=== PATIENT | female | born 1935 | race Caucasian/White ===

== ENCOUNTER 2016-08-12 08:32 | Inpatient (IN) | payer MEDICARE, BC ==
[~2016-08-12] VITALS: Ht 149.9 cm; Wt 77.1 kg
[2016-08-12] VITALS (8 sets, daily range): BP systolic 127–159; BP diastolic 59–68; O2SAT 95
[~2016-08-12 08:32] MED LIST: /CELE20CA PO; ACET30TAB PO; ADV500INH INH; ALLO300T PO; ASPI81TAEC PO; BACITAB3 PO; BREO1INH INH; CALCCHW12 PO; CELE-19 PO; CINN500C9 PO; CLOB-25 TOP; COUM2.5T11 PO; DOXY-278 PO; GABA300C3 PO; GLUC5TAB3 PO; JANUVIA; LEVA250T; LEVA750T PO; LEVO88TA3 PO; LIDO5DIS36 TD; LOSA50TA20 PO; MICR8CAP PO; MILKSUS PO; MIRA3350 PO; MUCI600T34 PO; MULTIVIT PO; NEUR300C; NEUR300C PO; NORV5TAB PO; OMEP20CA3 PO; ONGL1TAB9 PO; PLAV75TA PO; POTA-77 PO; PRED10TA PO; PRED1TAB69 PO; PRIL40CA PO; SENN1TAB2 PO; SENO8.6T10 PO; SMZ-800T PO; SYMB16INH INH; SYNT88TA; TORS20TA2 PO; TYLE325T5 PO; ULTR50TA PO; VALS80CA; VICO5TAB; VITA-121 PO; VITA500T53 PO; VITMTA PO; ZYLO300T4 PO
[2016-08-12 09:19] LABS: MEAN CORPUSCULAR HEMOGLOBIN 29.8 pg (27.0-33.0); MEAN CORPUSCULAR VOLUME 87.7 fl (80.0-96.0); PLATELET COUNT, AUTOMATED 202 k/mm3 (150-450); RED CELL DISTRIBUTION WIDTH 12.9 % (11.5-14.5)
[2016-08-12] MEDS ORDERED: IPRATROPIUM 0.5MG/ALBUTEROL 2.5MG INH SOL UD 3ML (DUONEB)(J7620) As Ordered ONE (09:19)
[2016-08-12] MEDS ORDERED: methylPREDNISolone INJ 125 MG/2 ML VIAL (J2930) As Ordered ONE (09:25)
[2016-08-12] MEDS ORDERED: LevoFLOXacin/DEXTROSE 750 MG/150 ML BAG (J1956) As Ordered ONE (09:53)
[2016-08-12 10:05] LABS: CALCIUM LEVEL 9.7 MG/DL (8.8-10.2); CREATININE FOR GFR 1.01 MG/DL (0.55-1.02); GLOMERULAR FILTRATION RATE 56.3 (>39); POTASSIUM SERUM 3.6 MEQ/L (3.5-5.1)
[2016-08-12 10:20] LABS: BANDS 7 % (< 11)
[2016-08-12] MEDS ORDERED: PLAV75TA PO (10:35)
[2016-08-12] MEDS ORDERED: TYLE325T5 PO (10:35)
[2016-08-12] MEDS ORDERED: ALLO15TA PO (10:35)
[2016-08-12] MEDS ORDERED: ALBU83IN INH (10:36)
[2016-08-12] MEDS ORDERED: POTA8TAB3 PO (10:36)
[2016-08-12] MEDS ORDERED: NS 1,000 ML IV SCH (12:45)
[2016-08-12] MEDS ORDERED: GLUCOSE 4 GM CHEW TABLET PO PRN (12:45)
[2016-08-12] MEDS ORDERED: DEXTROSE 50% 50 ML SYRINGE IV PRN (12:45)
[2016-08-12] MEDS ORDERED: GLUCAGON FOR INJ 1 MG VIAL (J1610) SC PRN (12:45)
[2016-08-12] MEDS ORDERED: ISOVUE-370 76% 100ML VIAL (Q9967) As Ordered ONE (12:49)
[2016-08-12] MEDS ORDERED: ONDANSETRON 4MG/2ML VIAL (J2405) IV PRN (13:00)
--- NOTE | 2016-08-12 14:37 | EDDOCDS ---
Nurse's Notes [facility] Name: Mary Bolanos Age: 80 yrs Sex: Female : 1935 Arrival Date: 08/12/2016 Time: 08:32 Bed 5 Private MD: Ozzy Martínez Diagnosis: Pneumonia, unspecified organism Presentation: 08/12 08:33 Presenting complaint: EMS states: Diagnosed 2 months ago with lung cancer. Call today mcp was for productive cough and shortness of breath. Albuterol neb given by EMS, SL established in left AC #18, FSBS--339. Adult Sepsis Screening: The patient does not have new or worsening altered mentation. Systolic blood pressure is greater than 100. Suicide/Homicide risk assessment- the patient denies having any suicidal and/or homicidal ideations and does not present with any other emotional, behavioral or mental health complaints. Status: Patient is not a child and family services specialist or dependent. Transition of care: patient was not received from another setting of care. 08:33 Acuity: JANETTE Level 3 [facility] 08:33 Method Of Arrival: Ambulance [facility] 13:46 Adult Sepsis Screening: Patient's respiratory rate is less than 22. Patient has a qSOFA js13 score of 0- Negative Sepsis Screen. Triage Assessment: 08:44 General: Appears in no apparent distress, Behavior is cooperative. Pain: Location: mcp chest from coughing Pain currently is 4 out of 10 on a pain scale. Respiratory: Onset: The symptoms/episode began/occurred gradually, Airway is patent Respiratory effort is even, labored, Breath sounds with rhonchi bilaterally. Derm: Skin is pink, warm & dry. Historical: - Allergies: Lipitor (Jaundice); Amoxicillin (Rash); Tussionex Pennkinetic ER (confusion); - Home Meds: 1. allopurinol 300 mg Oral tab 1 tab once daily (Last dose: 08/11/2016) 2. aspirin 81 mg Oral tab 1 tab once daily (Last dose: 08/11/2016) 3. Cinnamon 500 mg oral cap twice a day (Last dose: 08/11/2016) 4. glipizide 5 mg Oral tab 1 tab 2 times per day (Last dose: 08/11/2016) 5. multivitamin Oral tab daily (Last dose: 08/11/2016) 6. Neurontin 300 mg Oral cap twice a day (Last dose: 08/11/2016) 7. Norvasc 5 mg Oral tab 1 tab once daily (Last dose: 08/11/2016) 8. Plavix 75 mg Oral tab 1 tab once daily (Last dose: 08/11/2016) 9. potassium chloride 8 mEq Oral TbER 1 tab 3 times per day (Last dose: 08/11/2016) 10. prednisone 5 mg Oral tab once daily (Last dose: 08/11/2016) 11. Tessalon Perles 100 mg Oral cap 1 cap 3 times per day (Last dose: 08/11/2016) 12. Prilosec 40 mg Oral cpDR 1 cap once daily (Last dose: 08/11/2016) 13. Synthroid 88 mcg Oral tab 1 tab once daily (Last dose: 08/11/2016) 14. torsemide 20 mg oral tab 1 tab once daily (Last dose: 08/11/2016) 15. vitamin b12 500 mcg daily (Last dose: 08/11/2016) 16. Vitamin D3 1,000 unit oral tab daily (Last dose: 08/11/2016) - PMHx: Arthritis; Diabetes - NIDDM: controlled; GERD; Gout; Hypercholesterolemia; Hypertension; Thyroid problem; skin cancer; - PSHx: salivary gland removal; Cholecystectomy; Hernia repair; Laminectomy; Knee Arthroplasty, Right; abdominal obstruction - resect; - Social history: Smoking status: Patient states was never smoker of tobacco. No barriers to communication noted, The patient speaks fluent Turkmen. - Family history: Not pertinent. - : The pt / caregiver states he / she is on anticoagulants: Plavix. Home medication list is obtained from the patient. - Exposure Risk Screening:: None identified. Screenin:15 Screening information is obtained from the patient. Fall risk: At risk due to age. js13 Assistance ADL's: requires no assistance with activities of daily living. Abuse/DV Screen: The patient / caregiver reports he/she is: not in a situation that causes fear, pain or injury. Nutritional screening: No deficits noted. Advance Directives: There is no active DNR order. home support is adequate. Assessment: 09:15 General: Appears in no apparent distress, comfortable, Behavior is appropriate for age, js13 cooperative. Pain: Denies pain. Neurological: Level of Consciousness is awake, alert. Cardiovascular: Rhythm is sinus rhythm Chest pain is denied. Respiratory: Airway is patent Respiratory effort is even, unlabored, Respiratory pattern is regular, symmetrical, Breath sounds with rhonchi. Derm: Skin is pink, warm & dry. 09:15 General: MD aware of patients FSBS.. js13 10:20 General: Appears in no apparent distress, comfortable, Behavior is appropriate for age, js13 cooperative. Pain: Denies pain. Neurological: Level of Consciousness is awake, alert. Cardiovascular: Rhythm is sinus rhythm Chest pain is denied. Respiratory: Airway is patent Respiratory effort is even, unlabored, Respiratory pattern is regular, symmetrical, Breath sounds with rhonchi. Derm: Skin is pink, warm & dry. 11:03 Adult Sepsis Screening: The patient does not have new or worsening altered mentation. js13 Patient's respiratory rate is less than 22. Systolic blood pressure is greater than 100. Patient has a qSOFA score of 0- Negative Sepsis Screen. General: Appears in no apparent distress, comfortable, Behavior is appropriate for age, cooperative. Pain: Denies pain. Neurological: Level of Consciousness is awake, alert. Cardiovascular: Rhythm is sinus rhythm Chest pain is denied. Respiratory: Airway is patent Respiratory effort is even, unlabored, Respiratory pattern is regular, symmetrical. Derm: Skin is pink, warm & dry. 12:05 General: Appears in no apparent distress, comfortable, Behavior is appropriate for age, js13 cooperative. Pain: Denies pain. Neurological: Level of Consciousness is awake, alert. Cardiovascular: Rhythm is sinus rhythm Chest pain is denied. Respiratory: Airway is patent Respiratory effort is even, unlabored, Respiratory pattern is regular, symmetrical, Breath sounds are diminished. Derm: Skin is pink, warm & dry. 13:15 Adult Sepsis Screening: The patient does not have new or worsening altered mentation. js13 Patient's respiratory rate is less than 22. Systolic blood pressure is greater than 100. Patient has a qSOFA score of 0- Negative Sepsis Screen. General: Appears in no apparent distress, Behavior is appropriate for age, cooperative. Pain: Denies pain. Neurological: Level of Consciousness is awake, alert. Cardiovascular: Rhythm is sinus rhythm Chest pain is denied. Respiratory: Airway is patent Respiratory effort is even, Respiratory pattern is regular, Breath sounds are diminished. Derm: Skin is pink, warm & dry. 14:19 General: Appears in no apparent distress, comfortable, Behavior is appropriate for age, js13 cooperative. Pain: Denies pain. Neurological: Level of Consciousness is awake, alert. Cardiovascular: Rhythm is sinus rhythm Chest pain is denied. Respiratory: Airway is patent Respiratory effort is even, unlabored, Respiratory pattern is regular, symmetrical, Breath sounds with rhonchi Breath sounds are diminished. Derm: Skin is pink, warm & dry. Vital Signs: 08:41 BP 187 / 83; Pulse 109; Resp 22; Temp 98.4(TE); Pulse Ox 88% on 2 lpm NC; Weight 74.84 dem1 kg (R); Height 4 ft. 11 in. (149.86 cm) (R); Pain 3; 09:11 BP 163 / 72 (auto/); js13 09:11 Pulse 96 MON; Resp 18; Pulse Ox 90% on 4 lpm NC; js13 09:24 BP 196 / 83 (auto/); js13 09:24 Pulse 112 MON; Resp 20; Pulse Ox 90% on 3 lpm NC; js13 09:39 BP 143 / 75 (auto/); js13 09:39 Pulse 96 MON; Resp 20; Pulse Ox 92% on 3 lpm NC; js13 09:54 BP 157 / 70 (auto/); js13 09:54 Pulse 102 MON; Resp 20; Pulse Ox 88% on 3 lpm NC; js13 10:09 BP 133 / 56 (auto/); js13 10:09 Pulse 100 MON; Resp 20; Pulse Ox 88% on 3 lpm NC; js13 10:24 BP 176 / 74 (auto/); js13 10:24 Pulse 102 MON; Resp 20; Pulse Ox 89% on 3 lpm NC; js13 10:39 BP 174 / 76 (auto/); js13 10:39 Pulse 104 MON; Resp 20; Pulse Ox 89% on 3 lpm NC; js13 10:54 BP 152 / 64 (auto/); js13 10:54 Pulse 102 MON; Resp 18; Pulse Ox 89% on 3 lpm NC; js13 11:09 BP 150 / 68 (auto/); js13 11:09 Pulse 94 MON; Resp 20; Pulse Ox 86% on 3 lpm NC; js13 11:39 BP 144 / 68 (auto/); js13 11:39 Pulse 100 MON; Resp 20; Pulse Ox 89% on 3 lpm NC; js13 11:54 BP 167 / 73 (auto/); js13 11:54 Pulse 90 MON; Resp 20; Pulse Ox 89% on 3 lpm NC; js13 12:09 BP 150 / 63 (auto/); js13 12:09 Pulse 94 MON; Resp 20; Pulse Ox 88% on 3 lpm NC; js13 12:24 BP 157 / 71 (auto/); js13 12:24 Pulse 94 MON; Resp 20; Pulse Ox 87% on 3 lpm NC; js13 12:39 BP 148 / 60 (auto/); js13 12:39 Pulse 90 MON; Resp 20; Pulse Ox 88% on 3 lpm NC; js13 12:54 BP 151 / 67 (auto/); js13 12:54 Pulse 98 MON; Resp 18; Pulse Ox 89% on 3 lpm NC; js13 13:09 BP 152 / 67 (auto/); js13 13:09 Pulse 102 MON; Resp 20; Pulse Ox 91% on 3 lpm NC; js13 13:24 BP 144 / 59 (auto/); js13 13:24 Pulse 98 MON; Resp 20; Pulse Ox 88% on 3 lpm NC; js13 13:39 BP 152 / 70 (auto/); js13 13:39 Pulse 94 MON; Resp 20; Temp 98.5(O); Pulse Ox 89% on 3 lpm NC; js13 13:54 BP 135 / 70 (auto/); js13 13:54 Pulse 92 MON; Resp 18; Pulse Ox 89% on 3 lpm NC; js13 14:09 BP 148 / 70 (auto/); js13 14:09 Pulse 98 MON; Resp 18; Pulse Ox 89% on 3 lpm NC; js13 08:41 Body Mass Index 33.33 (74.84 kg, 149.86 cm) dem1 Vitals: 08:41 Log In Time N/A - ambulance arrival. dem1 ED Course: 08:33 Patient visited by Airam Castañeda, Director Of Parks And Recreation. lbd 08:33 Ozzy Martínez is Private Physician. lbd 08:33 Patient moved to Waiting lbd 08:34 Latha Rothman DO [facility]. bs6 08:34 Estee Hickman MD is Attending Physician. bs6 08:34 Patient visited by Latha Rothman DO. bs6 08:34 Patient visited by Latha Rothman DO. bs6 08:34 Patient moved to 5 lbd 08:36 Triage Initiated mcp 08:38 Dasha Bolanos,RN is Primary Nurse. js13 08:42 Patient visited by Raad Ryan. dem1 08:47 Patient visited by Ana Turk RN. mcp 09:06 Patient visited by Raad Ryan. dem1 09:06 EKG done. (by ED staff). Reviewed by Latha Rothman DO. dem1 09:15 The patient / caregiver is instructed regarding the plan of care and ED course. Placed js13 in gown. Bed in low position. Call light in reach. Side rails up X2. fibre optics jointer on. Pulse ox on. NIBP on. 09:15 Maintain field IV. Dressing intact. Good blood return noted. Site clean & dry. Gauge & js13 site: 18 gauge LAC. No procedures done that require assistance. Labs drawn. (by ED staff). Sent per order to lab. Labs/Blood culture drawn. O2 via nasal cannula \T\ 4L/min. 09:18 Patient visited by Dasha Bolanos RN. js13 09:18 BNP Sent. js13 09:18 Lactic Acid (Ni tube on ice) Sent. js13 09:23 TROPONIN Sent. js13 09:23 CARDIAC INJURY PROFILE Sent. js13 09:23 DIFFERENTIAL NO CHARGE Sent. js13 09:33 -Influenza A&B Rapid Antigen - Nose Sent. srm 09:57 Patient visited by Sonya Ren PCA. ct3 10:13 Patient moved to Ultrasound br3 10:45 Patient moved to 5 br3 10:48 Zuleyka Elena is Hospitalizing Provider. bs6 11:04 Patient visited by Dasha Bolanos RN. js13 11:08 [facility] Payment Agreement was scanned into [employer] and attached to record. pm4 12:08 Patient visited by Dasha Bolanos RN. js13 13:48 LACTIC ACID LEVEL, LACTATE Sent. js13 13:48 CARDIAC MARKER PANEL Sent. js13 Administered Medications: 09:28 Drug: Solu-MEDROL 125 mg [Solu-Medrol 500 mg intravenous solution (125 mg)] Route: IVP; srm Site: left antecubital; 09:30 Drug: Albuterol-Ipratropium 1 neb [ipratropium-albuterol 0.5 mg-3 mg(2.5 mg base)/3 mL kt1 nebulization soln (1 neb)] Route: Nebulizer; 09:45 Drug: Albuterol-Ipratropium 1 neb [ipratropium-albuterol 0.5 mg-3 mg(2.5 mg base)/3 mL kt1 nebulization soln (1 neb)] Route: Nebulizer; 10:02 Drug: Albuterol-Ipratropium 1 neb [ipratropium-albuterol 0.5 mg-3 mg(2.5 mg base)/3 mL kt1 nebulization soln (1 neb)] Route: Nebulizer; 10:03 Drug: levofloxacin 750 mg [levofloxacin 750 mg/150 mL in 5 % dextrose intravenous js13 piggyback] Route: IVPB; Infused Over: 90 mins; Site: left antecubital; 11:26 Follow up: IV Status: Completed infusion jc4 RT: 09:30 Initial Med Neb Given as ordered Patient was instructed and evaluated on procedure. kt1 Respiratory: Breath sounds are diminished bilaterally. 09:45 Subsequent Med Neb Given as ordered Patient tolerated procedure well without adverse kt1 effect. 10:02 Subsequent Med Neb Given as ordered Patient tolerated procedure well without adverse kt1 effect. Order Results: Lab Order: Basic Metabolic Profile; SPEC'M 08/12/16 08:56 Test: GLUCOSE, FASTING; Value: 363; Range: 83-110; Abnormal: Above high normal; Units: MG/DL; Status: F Test: BLOOD UREA NITROGEN; Value: 19; Range: 7-18; Abnormal: Above high normal; Units: MG/DL; Status: F Test: CREATININE FOR GFR; Value: 1.01; Range: 0.55-1.02; Units: MG/DL; Status: F Test: GLOMERULAR FILTRATION RATE; Value: 56.3; Range: >39; Status: F Test: SODIUM LEVEL; Value: 133; Range: 136-145; Abnormal: Below low normal; Units: MEQ/L; Status: F Test: POTASSIUM SERUM; Value: 3.6; Range: 3.5-5.1; Units: MEQ/L; Status: F Test: CHLORIDE LEVEL; Value: 85; Range: 98-107; Abnormal: Below low normal; Units: MEQ/L; Status: F Test: CARBON DIOXIDE LEVEL; Value: 38; Range: 21-32; Abnormal: Above high normal; Units: MEQ/L; Status: F Test: ANION GAP; Value: 10; Range: 8-16; Units: MEQ/L; Status: F Test: CALCIUM LEVEL; Value: 9.7; Range: 8.8-10.2; Units: MG/DL; Status: F Test Note: ; Units are mL/min/1.73 m2 Chronic Kidney Disease Staging per NKF: Stage I & II GFR >=60 Normal to Mildly Decreased Stage III GFR 30-59 Moderately Decreased Stage IV GFR 15-29 Severely Decreased Stage V GFR <15 Very Little GFR Left ESRD GFR <15 on S[employer]IOR [employer] UNDERWRITER Test: C REACTIVE PROTEIN QUANTITATIV; Range: 0.00-0.30; Units: MG/DL; Status: I Lab Order: CBC with Diff; SPEC'M 08/12/16 08:56 Test: WHITE BLOOD COUNT; Value: 13.0; Range: 4.0-10.0; Abnormal: Above high normal; Units: K/mm3; Status: F Test: RED BLOOD COUNT; Value: 4.85; Range: 4.00-5.40; Units: M/mm3; Status: F Test: HEMOGLOBIN; Value: 14.5; Range: 12.0-16.0; Units: g/dl; Status: F Test: HEMATOCRIT; Value: 42.5; Range: 36.0-47.0; Units: %; Status: F Test: MEAN CORPUSCULAR VOLUME; Value: 87.7; Range: 80.0-96.0; Units: fl; Status: F Test: MEAN CORPUSCULAR HEMOGLOBIN; Value: 29.8; Range: 27.0-33.0; Units: pg; Status: F Test: MEAN CORPUSCULAR HGB CONC; Value: 34.0; Range: 32.0-36.5; Units: g/dl; Status: F Test: RED CELL DISTRIBUTION WIDTH; Value: 12.9; Range: 11.5-14.5; Units: %; Status: F Test: PLATELET COUNT, AUTOMATED; Value: 202; Range: 150-450; Units: k/mm3; Status: F Test: NEUTROPHILS; Value: 78; Range: 35-75; Abnormal: Above high normal; Units: %; Status: F Test: BANDS; Value: 7; Range: < 11; Units: %; Status: F Test: LYMPHOCYTES; Value: 3; Range: 16-52; Abnormal: Below low normal; Units: %; Status: F Test: MONOCYTES; Value: 4; Range: 0-8; Units: %; Status: F Test: ATYPICAL LYMPH; Value: 8; Range: 0-5; Abnormal: Above high normal; Units: %; Status: F Test: RBC MORPHOLOGY; Value: NORMAL; Status: F Lab Order: Sputum Culture & Gram Stain; SPEC'M 08/12/16 08:58 Test: GRAM STAIN; Value: GRAM STAIN RESULT; Status: F Test: GRAM STAIN; Value: QUALITY: GOOD; Status: F Test: GRAM STAIN; Value: MANY WBCS; Status: F Test: GRAM STAIN; Value: FEW EPITHELIAL CELLS; Status: F Test: GRAM STAIN; Value: MANY GRAM POSITIVE COCCI IN PAIRS, CHAINS AND CLUSTERS; Status: F Lab Order: Lactic Acid (Ni tube on ice); SPEC'M 08/12/16 08:56 Test: LACTIC ACID LEVEL, LACTATE; Value: 2.5; Range: 0.4-2.0; Abnormal: Above upper panic limits; Units: MMOL/L; Status: F Lab Order: -Influenza A&B Rapid Antigen - Nose; SPEC'M 08/12/16 09:31 Test: INFLUENZA A RAPID SCR by ICA; Value: INFLUENZA A RESULTS NEGATIVE; Status: F Test: INFLUENZA A RAPID SCR by ICA; Value: Comments:; Status: F Test: INFLUENZA B RAPID SCR by ICA; Value: INFLUENZA B RESULTS NEGATIVE; Status: F Test Note: ; The Influenza test is a direct rapid immunoassay for the qualitative detection of Influenza viral antigen. Cell culture (Viral Culture) testing should be considered to confirm NEGATIVE results and to assist in detecting other viruses that can provide similar clinical symptoms. Please contact the lab within 24 hours ([phone] if confirmatory testing is desired. Lab Order: BNP; SPEC'M 08/12/16 08:56 Test: BRAIN NATRIURETIC PEPTIDE; Value: 39.7; Range: <100; Units: PG/ML; Status: F Lab Order: PLATELET ESTIMATE; SPEC'M 08/12/16 08:56 Test: PLATELET ESTIMATE; Value: NORMAL; Range: NORMAL; Status: F Lab Order: CARDIAC INJURY PROFILE; SPEC'M 08/12/16 08:56 Test: CPK CREATINE PHOSPHOKINASE; Value: 54; Range: 26-192; Units: U/L; Status: F Test: CK-MB VALUE MASS; Value: 1.5; Range: 0.0-3.6; Units: NG/ML; Status: F Test: MB/CK RELATIVE INDEX; Value: 2.77; Range: < OR =4; Status: F Test Note: ; DIAGNOSIS CRITERIA MMB ng/ml Relative Index (RI) NON-AMI < or = 5 N/A NI ZONE > 5 < or = 4 AMI > 5 > 4 Lab Order: TROPONIN; SPEC08/12/16 08:56 Test: TROPONIN I; Value: 0.02; Range: < 0.10; Units: NG/ML; Status: F Test Note: ; Troponin I Reference Interval for [email or web address] LOCI: 99th Percentile= 0.00-0.045 ng/ml Risk Stratification: <= 0.10 ng/ml Decreased Risk for Adverse Clinical Events. 0.10-1.50 ng/ml Increased Risk for Adverse Clinical Events. Evaluation of additional criterion and/or repeat testing in 2-6 hours is suggested to rule out myocardial damage. >= 1.50 ng/ml Indicative of Myocardial Injury. Lab Order: C REACTIVE PROTEIN QUANTITATIV; SPECM 08/12/16 08:56 Test: C REACTIVE PROTEIN QUANTITATIV; Value: 22.60; Range: 0.00-0.30; Abnormal: Above high normal; Units: MG/DL; Status: F Outcome: 10:48 Decision to Hospitalize by Provider. bs6 13:39 Discharge Assessment: Patient awake, alert and oriented x 3. No cognitive and/or js13 functional deficits noted. Patient verbalized understanding of disposition instructions. patient administered narcotics - no. Condition: stable. CT Study completed. Ultrasound Study completed. Property :Personal belongings accompany Pt. 14:09 The following High Risk Discharge criteria are identified: None. Admitted to ICU js13 accompanied by nurse, accompanied by tech, family with patient, via stretcher, with oxygen, on monitor, with chart. Admission hand-off: Report called to Yesenia Cadet RN. 14:37 Patient left the ED. js13 Signatures: Airam Castañeda, Director Of Parks And Recreation Unit lbd Muriel Beckman, RN RN Ana Hedrick, RN RN Linda Siegel kt1 Nayeli Sage br3 Dasha Bell, RN RN jc4 Sonya Ren, STULL INSTALLER STULL INSTALLER ct3 Raad Ryan dem1 Dasha Bolanos RN RN js13 Latha Rothman, DO bs6 Yuri Leon, Reg Reg pm4 Corrections: (The following items were deleted from the chart) 09:20 09:18 TROPONIN+LAB sent. js13 EDMS 09:20 09:18 CARDIAC INJURY PROFILE+LAB sent. 13 EDMS 10:04 09:15 Maintain field IV. Dressing intact. Good blood return noted. Site clean & dry. js13 Gauge & site: 18 gauge RAC. js13 MTDD
--- NOTE | 2016-08-12 14:37 | REP ---
PA and lateral chest 08/12/2016 Indication: Shortness of breath Comparison made with prior CT chest 07/22/2016, PET scan , chest radiograph 07/16/2016 Findings: Moderate atherosclerotic changes are noted in the thoracic aorta the cardiac silhouette is obscured by dense consolidation within the lingula left lower lobe and portion of the left upper lobe. There are also a small area of consolidation within the right upper lobe and right base . These findings correspond to areas of abnormal hypermetabolic activity on PET scan 08/06/16 . The patient also has a known right thyroid mass, not appreciated radiographically. Impression: Persistent dense consolidation within the inferior aspect left upper lobe, left lingula with left lower lobe, small patchy area of of opacity in the right upper lobe and right base. These areas are not significantly changed from chest radiograph 07/16/2016 and do correspond with areas of hypermetabolic uptake on PET scan. Signed by Lesia Salinas MD 08/12/2016 10:01 A
--- NOTE | 2016-08-12 14:38 | EDDOCDS ---
Physician Documentation [employer] Name: Mary Bolanos Age: 80 yrs Sex: Female : 1935 Arrival Date: 08/12/2016 Time: 08:32 Bed 5 Private MD: Ozzy Martínez Disposition: 08/12/16 10:48 Hospitalization ordered by Zuleyka Elena for Inpatient Admission. Preliminary diagnosis is Pneumonia, unspecified organism. - Bed requested for M ICU. - Status is Inpatient Admission. [id number] - Condition is Stable. - Problem is new. - Symptoms are unchanged. Historical: - Allergies: Lipitor (Jaundice); Amoxicillin (Rash); Tussionex Pennkinetic ER (confusion); - Home Meds: 1. allopurinol 300 mg Oral tab 1 tab once daily (Last dose: 08/11/2016) 2. aspirin 81 mg Oral tab 1 tab once daily (Last dose: 08/11/2016) 3. Cinnamon 500 mg oral cap twice a day (Last dose: 08/11/2016) 4. glipizide 5 mg Oral tab 1 tab 2 times per day (Last dose: 08/11/2016) 5. multivitamin Oral tab daily (Last dose: 08/11/2016) 6. Neurontin 300 mg Oral cap twice a day (Last dose: 08/11/2016) 7. Norvasc 5 mg Oral tab 1 tab once daily (Last dose: 08/11/2016) 8. Plavix 75 mg Oral tab 1 tab once daily (Last dose: 08/11/2016) 9. potassium chloride 8 mEq Oral TbER 1 tab 3 times per day (Last dose: 08/11/2016) 10. prednisone 5 mg Oral tab once daily (Last dose: 08/11/2016) 11. Tessalon Perles 100 mg Oral cap 1 cap 3 times per day (Last dose: 08/11/2016) 12. Prilosec 40 mg Oral cpDR 1 cap once daily (Last dose: 08/11/2016) 13. Synthroid 88 mcg Oral tab 1 tab once daily (Last dose: 08/11/2016) 14. torsemide 20 mg oral tab 1 tab once daily (Last dose: 08/11/2016) 15. vitamin b12 500 mcg daily (Last dose: 08/11/2016) 16. Vitamin D3 1,000 unit oral tab daily (Last dose: 08/11/2016) - PMHx: Arthritis; Diabetes - NIDDM: controlled; GERD; Gout; Hypercholesterolemia; Hypertension; Thyroid problem; skin cancer; - PSHx: salivary gland removal; Cholecystectomy; Hernia repair; Laminectomy; Knee Arthroplasty, Right; abdominal obstruction - resect; - Social history: Smoking status: Patient states was never smoker of tobacco. No barriers to communication noted, The patient speaks fluent Icelandic. - Family history: Not pertinent. - : The pt / caregiver states he / she is on anticoagulants: Plavix. Home medication list is obtained from the patient. - Exposure Risk Screening:: None identified. Vital Signs: 08/12 08:41 BP 187 / 83; Pulse 109; Resp 22; Temp 98.4(TE); Pulse Ox 88% on 2 lpm NC; Weight 74.84 dem1 kg / 164.99 lbs (R); Height 4 ft. 11 in. (149.86 cm) (R); Pain 10/17; 09:11 BP 163 / 72 (auto/); js13 09:11 Pulse 96 MON; Resp 18; Pulse Ox 90% on 4 lpm NC; js13 09:24 BP 196 / 83 (auto/); js13 09:24 Pulse 112 MON; Resp 20; Pulse Ox 90% on 3 lpm NC; js13 09:39 BP 143 / 75 (auto/); js13 09:39 Pulse 96 MON; Resp 20; Pulse Ox 92% on 3 lpm NC; js13 09:54 BP 157 / 70 (auto/); js13 09:54 Pulse 102 MON; Resp 20; Pulse Ox 88% on 3 lpm NC; js13 10:09 BP 133 / 56 (auto/); js13 10:09 Pulse 100 MON; Resp 20; Pulse Ox 88% on 3 lpm NC; js13 10:24 BP 176 / 74 (auto/); js13 10:24 Pulse 102 MON; Resp 20; Pulse Ox 89% on 3 lpm NC; js13 10:39 BP 174 / 76 (auto/); js13 10:39 Pulse 104 MON; Resp 20; Pulse Ox 89% on 3 lpm NC; js13 10:54 BP 152 / 64 (auto/); js13 10:54 Pulse 102 MON; Resp 18; Pulse Ox 89% on 3 lpm NC; js13 11:09 BP 150 / 68 (auto/); js13 11:09 Pulse 94 MON; Resp 20; Pulse Ox 86% on 3 lpm NC; js13 11:39 BP 144 / 68 (auto/); js13 11:39 Pulse 100 MON; Resp 20; Pulse Ox 89% on 3 lpm NC; js13 11:54 BP 167 / 73 (auto/); js13 11:54 Pulse 90 MON; Resp 20; Pulse Ox 89% on 3 lpm NC; js13 12:09 BP 150 / 63 (auto/); js13 12:09 Pulse 94 MON; Resp 20; Pulse Ox 88% on 3 lpm NC; js13 12:24 BP 157 / 71 (auto/); js13 12:24 Pulse 94 MON; Resp 20; Pulse Ox 87% on 3 lpm NC; js13 12:39 BP 148 / 60 (auto/); js13 12:39 Pulse 90 MON; Resp 20; Pulse Ox 88% on 3 lpm NC; js13 12:54 BP 151 / 67 (auto/); js13 12:54 Pulse 98 MON; Resp 18; Pulse Ox 89% on 3 lpm NC; js13 13:09 BP 152 / 67 (auto/); js13 13:09 Pulse 102 MON; Resp 20; Pulse Ox 91% on 3 lpm NC; js13 13:24 BP 144 / 59 (auto/); js13 13:24 Pulse 98 MON; Resp 20; Pulse Ox 88% on 3 lpm NC; js13 13:39 BP 152 / 70 (auto/); js13 13:39 Pulse 94 MON; Resp 20; Temp 98.5(O); Pulse Ox 89% on 3 lpm NC; js13 13:54 BP 135 / 70 (auto/); js13 13:54 Pulse 92 MON; Resp 18; Pulse Ox 89% on 3 lpm NC; js13 14:09 BP 148 / 70 (auto/); js13 14:09 Pulse 98 MON; Resp 18; Pulse Ox 89% on 3 lpm NC; 13 08:41 Body Mass Index 33.33 (74.84 kg, 149.86 cm) dem1 MDM: 08:56 -Blood Culture (Adults Only), peripheral from different site, or from device/port/PICC bs6 etc. if present ordered. 08:56 Bus Greaser/Pulse Ox/q 15 min VS ordered. bs6 08:56 IV Saline Lock ordered. bs6 08:56 Oxygen at 4L/Min NC or Home dosage ordered. bs6 08:56 Rhythm Strip to chart ordered. bs6 08:57 -Blood Culture Ordered. EDMS 08:57 Basic Metabolic Profile Ordered. EDMS 08:57 CBC with Diff Ordered. EDMS 08:57 ECG WITH READING ER PHYS+CARDIAG ordered. EDMS 08:57 DVT US Lower Ordered. EDMS 08:57 Chest, 2 View (pa\E\lat) Ordered. EDMS 09:01 -Blood Culture (Adults Only), peripheral from different site, or from device/port/PICC lbd etc. if present complete. 09:02 Sputum Culture & Gram Stain Ordered. EDMS 09:03 BLOOD CULTURES Ordered. EDMS 09:14 Albuterol-Ipratropium 1 neb Nebulizer every 20 minutes x3 ordered. sd1 09:14 Call Respiratory ordered. sd1 09:15 Solu-MEDROL 125 mg IVP once ordered. sd1 09:15 Lactic Acid (Ni tube on ice) Ordered. EDMS 09:15 -Influenza A&B Rapid Antigen - Nose Ordered. EDMS 09:16 BNP Ordered. EDMS 09:17 Call Respiratory complete. lbd 09:20 DIFFERENTIAL NO CHARGE Ordered. EDMS 09:21 PLATELET ESTIMATE Ordered. EDMS 09:22 CARDIAC INJURY PROFILE Ordered. EDMS 09:22 TROPONIN Ordered. EDMS 09:30 BED REQUEST+ADM ordered. EDMS 09:32 CBC with Diff Reviewed. sd1 09:38 levofloxacin 750 mg IVPB once over 90 mins ordered. bs6 10:29 Basic Metabolic Profile Reviewed. sd1 10:29 CBC with Diff Reviewed. sd1 10:29 -Influenza A&B Rapid Antigen - Nose Reviewed. sd1 10:29 BNP Reviewed. sd1 10:29 PLATELET ESTIMATE Reviewed. sd1 10:29 CARDIAC INJURY PROFILE Reviewed. sd1 10:29 TROPONIN Reviewed. sd1 10:58 Financial registration complete. pm4 11:08 [facility] Payment Agreement was scanned into [employer] and attached to record. pm4 12:42 CARDIAC MARKER PANEL Ordered. EDMS 12:42 LACTIC ACID LEVEL, LACTATE Ordered. EDMS 12:44 CT Chest with contrast Ordered. EDMS 12:51 C REACTIVE PROTEIN QUANTITATIV Ordered. EDMS 12:52 Admission / Observation Status ordered. EDMS 12:52 CONSISTENT CARBOHYDRATES ordered. EDMS 12:52 PHYSICAL THERAPY EVAL & TREAT ordered. EDMS Administered Medications: 09:28 Drug: Solu-MEDROL 125 mg [Solu-Medrol 500 mg intravenous solution (125 mg)] Route: IVP; srm Site: left antecubital; 09:30 Drug: Albuterol-Ipratropium 1 neb [ipratropium-albuterol 0.5 mg-3 mg(2.5 mg base)/3 mL kt1 nebulization soln (1 neb)] Route: Nebulizer; 09:45 Drug: Albuterol-Ipratropium 1 neb [ipratropium-albuterol 0.5 mg-3 mg(2.5 mg base)/3 mL kt1 nebulization soln (1 neb)] Route: Nebulizer; 10:02 Drug: Albuterol-Ipratropium 1 neb [ipratropium-albuterol 0.5 mg-3 mg(2.5 mg base)/3 mL kt1 nebulization soln (1 neb)] Route: Nebulizer; 10:03 Drug: levofloxacin 750 mg [levofloxacin 750 mg/150 mL in 5 % dextrose intravenous js13 piggyback] Route: IVPB; Infused Over: 90 mins; Site: left antecubital; 11:26 Follow up: IV Status: Completed infusion jc4 Signatures: Dispatcher [employer] EDSD Estee Hickman MD MD sd1 Daly, Linda, Dental [employer] Karon Sheppard RN RN kpj Peters, Mary, RN RN mcp Sullivan, Jennifer, RN RN js13 Latha Rothman, DO bs6 Yuri Leon, Reg Reg pm4 Muriel Beckman RN, Kristin kt1 Dasha Bell RN jc4 The chart was reviewed and I authenticate all verbal orders and agree with the evaluation and treatment provided.Corrections: (The following items were deleted from the chart) 09:20 09:15 CARDIAC INJURY PROFILE+LAB ordered. EDMS EDMS 09:20 09:15 TROPONIN+LAB ordered. EDMS EDMS 12:51 12:42 C REACTIVE PROTEIN QUANTITATIV ordered. EDMS EDMS Attachments: 11:08 [facility] Payment Agreement pm4 LIVAND
--- NOTE | 2016-08-12 14:39 | REP ---
Left lower extremity Duplex Doppler venous ultrasound: Real time compression and duplex Doppler interrogation of the left lower extremity deep venous system is performed. The left common femoral, superficial femoral and popliteal veins are fully compressible with transducer pressure and demonstrate normal spontaneous and phasic flow, without evidence of deep venous thrombosis. Impression: No evidence of deep venous thrombosis of the left lower extremity femoral popliteal venous system. Signed by Dusty Ni MD 08/12/2016 10:50 A
[2016-08-12] MEDS: AZITHROMYCIN 500 MG, VIAL MATE ADAPTER 1 EACH in D5W 250 ML IV SCH (15:15)
[2016-08-12] MEDS: amLODIPine 5 MG TAB PO SCH (15:19)
[2016-08-12] MEDS: OMEPRAZOLE 20 MG CAP PO SCH (15:19)
[2016-08-12] MEDS: ASPIRIN 81 MG ENTERIC TAB PO SCH (15:20)
[2016-08-12] MEDS: VITAMIN D 1,000 INTERNATIONAL UNITS TABLET PO SCH (15:20)
[2016-08-12] MEDS: BENZONATATE 100 MG CAP PO SCH ×2 (15:20→21:08)
[2016-08-12] MEDS: ALLOPURINOL 300 MG TAB PO SCH (15:20)
[2016-08-12] MEDS: CYANOCOBALAMIN 500 MCG TAB PO SCH (15:20)
[2016-08-12] MEDS: ENOXAPARIN 40 MG/0.4 ML SYRINGE (J1650) SC SCH (15:27)
--- NOTE | 2016-08-12 15:37 | HPE ---
DATE OF ADMISSION: 08/12/2016 PRIMARY CARE PROVIDER: Dr. Ozzy Martínez VINE PRUNER: Dr. Murray ONCOLOGIST: Dr. Emma Thomas CHIEF COMPLAINT: Shortness of breath and cough. HISTORY OF PRESENT ILLNESS: This is a 80-year-old female with underlying medical history of non-insulin dependent type 2 diabetes, hypertension, dyslipidemia, gout, hypothyroidism, osteoarthritis, gastroesophageal reflux disease (GERD), cataract, and also carotid artery stenosis recently admitted for left eye admitted in May for left eye amaurosis fugax found to have severe carotid artery stenosis is getting optimized for carotid endarterectomy, but was persistent since May of cough and dyspnea in July 2016 was diagnosed with adenocarcinoma left side of the lung subsequently was sent to followup with Oncologist, Dr. Emma Thomas. Had a PET scan done that was recent. Patient came in today with one day history of worsening cough and shortness of breath. As per patient since May of last year patient's cough has been getting progressively worse productive of yellow sputum. She explained that over the past two days patient cannot even sleep because of the cough with also dyspnea. Patient is on oxygen at home. Denies any chest pain, pressure, or discomfort. Denies any abdominal pain. Denies any nausea or vomiting. ALLERGIES: AMOXICILLIN, ATORVASTATIN, PENICILLIN, CHLORPHENIRAMINE, CODEINE, HYDROCODONE, PHENYLTOLOXAMINE. PAST MEDICAL HISTORY: Carotid artery stenosis, osteoarthritis, type 2 non-insulin dependent diabetes, gastroesophageal reflux disease (GERD), gout, dyslipidemia, hypertension, hypertension, skin cancer, hypothyroidism, adenocarcinoma of the left lung diagnosed July 2016. PAST SURGICAL HISTORY: Salivary gland removal, cholecystectomy, hernia repair, laminectomy, small bowel obstruction with resection, right knee arthroplasty. FAMILY HISTORY: Noncontributory. SOCIAL HISTORY: Patient never smoked and does not drink alcoholic beverages or use illicit drugs. Lives at home with . REVIEW OF SYSTEMS: Eleven point review of systems are negative except for those mentioned in the history of present illness. HOME MEDICATIONS: - acetaminophen 650 mg by mouth every 4 hours as needed - albuterol inhalation every 4 hours as needed - allopurinol 150 mg by mouth daily - Norvasc 5 mg by mouth daily - aspirin 81 mg by mouth daily - vitamin D 1000 units by mouth daily - cinnamon bark 500 mg by mouth twice a day - Plavix 75 mg by mouth at bedtime - vitamin B12 500 mcg by mouth daily - gabapentin 300 mg by mouth twice a day - glipizide 5 mg by mouth twice a day - Synthroid 80 mcg by mouth daily - multivitamin 1 tablet by mouth every day at bedtime - omeprazole 20 mg by mouth daily - potassium chloride 8 mEq by mouth three times a day every other day - prednisone 30 mg by mouth daily - Senna Plus one tablet by mouth twice a day - torsemide 20 mg by mouth daily PHYSICAL EXAMINATION: Blood pressure 163/72, pulse 96, respiration 18, temperature 98.4, pulse ox 90% on 4 liters nasal cannula. Patient alert and oriented times three in no acute distress with significant cough. HEENT: Normocephalic, atraumatic. PULMONARY: Bilateral crackles. Mild expiratory wheeze. CARDIAC: Mild tachycardia, irregular, S1, S2. ABDOMEN: Soft, nontender. Positive bowel sounds. EXTREMITIES: No edema bilateral lower extremities. EKG - sinus tachycardia at 103. No ST segment changes. LABORATORY DATA: WBC 13, hemoglobin and hematocrit 14.5, 42.5, platelets 202. Chemistries - sodium 133, potassium 3.6, chloride 85, bicarbonate 38, BUN 19, creatinine 1.01, lactic acid 2.5, cardiac enzyme negative times one, C-reactive protein 22.6. ASSESSMENT AND PLAN: This is a 80-year-old female patient with underlying medical history of hypothyroidism, osteoarthritis, non-insulin dependent type 2 diabetes, gastroesophageal reflux disease (GERD), gout, dyslipidemia, hypertension, skin cancer, carotid artery stenosis, recent left eye amaurosis fugax and recent left sided adenocarcinoma of the lung diagnosed July 2016 came in with cough, dyspnea. Problems: 1. Cough and dyspnea, possible secondary to underlying cancer versus postobstructive pneumonia, C-reactive protein elevated with leukocytosis and tachycardia. Patient with sepsis possibly secondary to postobstructive bacterial pneumonia, followup cultures, blood culture, sputum culture, and influenza are negative. Antibiotics - we will place the patient on cefepime and azithromycin. IV fluids for hydration. CT scan of the lung. 2. Adenocarcinoma of the lung. Patient sees Dr. Emma Thomas. Recent PET scan. Will consult hematology/oncology Dr. Snell given Dr. Thomas is away on vacation to see if there is need for chemo port placement during this admission. In the meantime continue antibiotics as mentioned above. Support care, oxygen supplementation. Case discussed with Dr. Murray. Per Dr. Murray patient has no underlying lung disease, no chronic obstructive pulmonary artery disease (COPD) other than the cancer. We will offer a trial of steroids with inhalers to see if patient's condition improves. Cough suppressants as ordered. 3. Carotid artery stenosis. Unfortunately patient's further procedure for carotid artery endarterectomy is postponed secondary to active cancer. Continue aspirin and Plavix. Patient will not tolerate statins due to complications of jaundice. 4. Hypertension. Monitor blood pressure. Continue blood pressure medication as ordered with sodium diuretics providing IV hydration at this time. 5. Neuropathy. Continue home medications. 6. Non-insulin dependent diabetes. Insulin as per protocol. 7. Dyslipidemia. Dietary modifications. 8. Gastroesophageal reflux disease (GERD). Continue proton pump inhibitor (PPI). 9. Gout. Continue home medications. 10. Diabetic neuropathy. Continue Neurontin. 11. Hypothyroidism. Continue Synthroid. 12. Deep venous thrombosis (DVT) prophylaxis. We will provide Lovenox subcutaneous. 13. Lower extremity swelling. Ultrasound of lower extremity preliminary negative for deep venous thrombosis (DVT). We will followup official read. DISPOSITION: Pending oncology followup, clinical improvement. Case discussed with Dr. Murray. Awaiting Dr. Snell to call back. [facility]ON HOSPITALChasity
[2016-08-12] MEDS: ALBUTEROL SULFATE 2.5 MG/0.5 ML INH NEB SOLN INH PRN ×2 (15:44→20:30)
[2016-08-12] MEDS: CEFEPIME HCL 2 GM in D5W MINI-BAG PLUS 50 ML IV SCH (16:31)
--- NOTE | 2016-08-12 17:09 | REP ---
CT chest with IV contrast,08/12/2016: Indication: Exclude postobstructive pneumonia. Comparison: CT chest with IV contrast 07/22/2016, CTA chest 07/16/2016, 06/02/2014. Technique: Following dynamic IV contrast administration with 75 ml Isovue 370 mg/ml, 3 mm spiral axial sections performed through chest. Findings: There is a large persistent low density mass involving the right lobe of thyroid, measuring 4.8 cm AP by 3.4 cm transverse dimension with intrathoracic extension. There is also a 4 mm hypodense lesion within left thyroid lobe. The thoracic aorta has atherosclerotic changes, yet is without aneurysm or dissection. The cardiac silhouette is borderline in size, with extensive coronary artery calcifications. Stable calcified subcarinal adenopathy is noted consistent with old granulomatous disease. There is also a 12 mm right azygo-esophageal node, previously 13 mm on 07/22/2016, and new when compared with CT 06/02/2014. Impression: Persistent bilateral areas of consolidation are seen within the right upper lobe, right lower lobe, especially medial basilar segment; also posterior segment left upper lobe, as well as generalized consolidation in the left lower lobe. The appearance is unchanged from 07/22/2016, but with significant progression from 06/02/2014. Given the known scattered bilateral lung parenchymal hypermetabolic activity on PET scan, consider scattered areas of parenchymal adenocarcinoma; may also consider infiltrates. May consider biopsy if clinically indicated. Bilateral thyroid nodules largest 4.8 cm in maximal dimension on the right. Signed by Lesia Salinas MD 08/12/2016 08:15 P
[2016-08-12] MEDS: HumaLOG INSULIN (NovoLOG) PER UNIT SC SCH ×2 (17:29→21:08)
[2016-08-12] MEDS ORDERED: CLOPIDOGREL 75 MG TAB PO SCH (21:00)
[2016-08-12] MEDS: GABAPENTIN 300 MG CAP PO SCH (21:08)
[2016-08-12] MEDS: SENOKOT S TAB PO SCH (21:08)
[2016-08-12] MEDS: methylPREDNISolone INJ 40 MG/1 ML VIAL (J2920) IV SCH (21:08)
[2016-08-12] MEDS: MULTIVITAMINS/MINERALS THERAP 1 TAB PO SCH (21:08)
[2016-08-13] VITALS: BP 168/76
[2016-08-13] MEDS ORDERED: BENZONATATE 100 MG CAP PO ONE (01:45)
[2016-08-13] MEDS: ALBUTEROL SULFATE 2.5 MG/0.5 ML INH NEB SOLN INH PRN (03:45)
[2016-08-13 04:00] VITALS: BP 131/59
[2016-08-13] MEDS: CEFEPIME HCL 2 GM in D5W MINI-BAG PLUS 50 ML IV SCH ×2 (04:42→17:59)
[2016-08-13 05:03] LABS: MEAN CORPUSCULAR VOLUME 88.3 fl (80.0-96.0); RED CELL DISTRIBUTION WIDTH 13.6 % (11.5-14.5); WHITE BLOOD COUNT 10.5 K/mm3 (4.0-10.0)
[2016-08-13 05:23] LABS: ANION GAP 7 MEQ/L (8-16); BLOOD UREA NITROGEN 20 MG/DL (7-18); CALCIUM LEVEL 9.9 MG/DL (8.8-10.2); CARBON DIOXIDE LEVEL 39 MEQ/L (21-32); CHLORIDE LEVEL 88 MEQ/L (98-107); CREATININE FOR GFR 0.84 MG/DL (0.55-1.02); GLOMERULAR FILTRATION RATE > 60.0 (>39); GLUCOSE, FASTING 287 MG/DL (83-110); MAGNESIUM LEVEL 2.1 MG/DL (1.8-2.4); POTASSIUM SERUM 3.6 MEQ/L (3.5-5.1); SODIUM LEVEL 134 MEQ/L (136-145)
[2016-08-13] MEDS: LEVOTHYROXINE 0.088 MG TAB (88 MCG) PO SCH (05:34)
[2016-08-13] MEDS ORDERED: POTASSIUM CHLORIDE 10 MEQ SR TABLET PO ONE (07:45)
[2016-08-13 08:00] VITALS: BP 121/64
[2016-08-13] MEDS: BENZONATATE 100 MG CAP PO SCH ×3 (08:05→21:57)
[2016-08-13] MEDS: CYANOCOBALAMIN 500 MCG TAB PO SCH (08:05)
[2016-08-13] MEDS: amLODIPine 5 MG TAB PO SCH (08:07)
[2016-08-13] MEDS: GABAPENTIN 300 MG CAP PO SCH ×2 (08:09→21:57)
[2016-08-13] MEDS: ALLOPURINOL 300 MG TAB PO SCH (08:09)
[2016-08-13] MEDS: OMEPRAZOLE 20 MG CAP PO SCH (08:09)
[2016-08-13] MEDS: ASPIRIN 81 MG ENTERIC TAB PO SCH (08:09)
[2016-08-13] MEDS: SENOKOT S TAB PO SCH ×2 (08:09→21:57)
[2016-08-13] MEDS: ENOXAPARIN 40 MG/0.4 ML SYRINGE (J1650) SC SCH (08:10)
[2016-08-13] MEDS: HumaLOG INSULIN (NovoLOG) PER UNIT SC SCH ×4 (08:10→21:54)
[2016-08-13] MEDS: methylPREDNISolone INJ 40 MG/1 ML VIAL (J2920) IV SCH ×2 (08:10→21:54)
[2016-08-13] MEDS: VITAMIN D 1,000 INTERNATIONAL UNITS TABLET PO SCH (08:13)
[2016-08-13 12:00] VITALS: BP 128/61
[2016-08-13 14:18] VITALS: BP 130/63
[2016-08-13] MEDS: AZITHROMYCIN 500 MG, VIAL MATE ADAPTER 1 EACH in D5W 250 ML IV SCH (16:05)
--- NOTE | 2016-08-13 16:18 | IPN ---
DATE: 08/13/2015 The patient is seen and examined. Continued to have dyspnea and significant cough. No fevers or chills. No chest pain, pressure or discomfort. VITAL SIGNS: Temperature 98.6, pulse 88, respiratory rate 20, blood pressure 130/63, pulse oximetry 91% on high-flow five liters nasal cannula. LABORATORY DATA: WBC 10.5, hemoglobin and hematocrit 12.9/37.8, platelets 197. Chemistry: Sodium 134, potassium 3.6, chloride 88, bicarbonate 39, BUN 20, creatinine 0.84, lactic acid 1.1. PHYSICAL EXAMINATION: GENERAL: The patient is alert and oriented times three with significant cough. HEENT: Normocephalic, atraumatic. PULMONARY: Bilateral crackles, mild expiratory wheeze. CARDIOVASCULAR: Mild tachycardia. Regular S1, S2. ABDOMEN: Soft, nontender. Positive bowel sounds. EXTREMITIES: No edema of bilateral lower extremities. ASSESSMENT AND PLAN: This is a 80-year-old female patient with underlying medical history of hypothyroidism, osteoarthritis, [id number] type 2 diabetes, gastroesophageal reflux disease (GERD), gout, dyslipidemia, hypertension, skin cancer, carotid artery stenosis, recent left eye amaurosis fugax, and recently diagnosed adenocarcinoma of the lung, stage IV, diagnosed July 2016 who presented with hypoxic respiratory failure and dyspnea. PROBLEMS: 1. Coughing and dyspnea with hypoxic respiratory failure, likely secondary to adenocarcinoma of the lung, stage IV versus postobstructive pneumonia. C-reactive protein elevated with leukocytosis and tachycardia. Sepsis secondary to postobstructive pneumonia, followup cultures. Sputum culture, blood culture, influenza negative. Antibiotics, patient on cefepime and azithromycin. IV hydration initially provided. CT scan of the lung appreciated. 2. Adenocarcinoma of the lung. The patient sees Dr. Emma Thomas. Recent PET scan reviewed, currently stage IV. Dr. Snell consulted given Dr. Emma Thomas is away for vacation. As per Dr. Emma Thomas, apparently waiting for estimated glomerular filtration rate (eGFR) gene markers. If it is possible, the patient might be a candidate for oral chemotherapy regimen. Otherwise, the patient will need IV chemotherapy. In the meantime, we will continue antibiotics as mentioned above, supportive care, oxygen supplementation, antitussive medication. Case discussed with Dr. Murray. The patient has no underlying chronic obstructive pulmonary disease (COPD) and is not a smoker. Continue inhalers and steroids to see if it helps the patient's condition. Cough suppressant as ordered. 3. Carotid artery stenosis. Unfortunately, the patient's further procedure for carotid endarterectomy has to be postponed secondary to active cancer. Aspirin and Plavix are on hold secondary to possible procedure of chemotherapy port placement. The patient does not tolerate statin due to complication of jaundice. 4. Hypertension. Monitor blood pressure. Continue blood pressure medication as ordered. We will consider resuming the patient's oral home diuretics. 5. Diabetic neuropathy. Continue home medication Neurontin. 6. Insulin-dependent diabetes. Insulin as per protocol. 7. Dyslipidemia. Dietary modification. 8. Gastroesophageal reflux disease (GERD). Continue proton pump inhibitor (PPI). 9. Gout. Continue home medications. 10. Hypothyroidism. Continue Synthroid. 11. Lower extremity edema, swelling. Ultrasound Doppler negative for deep vein thrombosis (DVT). We will resume diuretic once the patient's condition improves. 12. DVT prophylaxis. Lovenox subcutaneous. DISPOSITION PLANNING: Pending oncology consultation, final eGFR. If the patient needs IV inpatient chemotherapy, the patient will be transferred.
--- NOTE | 2016-08-13 19:32 | ECGEPIP ---
Stationary ECG Study [facility] - ED Test Date: 2016-08-12 Pat Name: RITU FOUNTAIN Department: Room: - Gender: F Gluer And Wedger: blaine : 1935 Requested By: OTTO WELSH Order Number: [id number] Reading MD: Estee Hickman Measurements Intervals [place] Rate: 103 P: 52 CO: 171 QRS: -8 QRSD: 92 T: 93 QT: 328 QTc: 430 Interpretive Statements SINUS TACHYCARDIA NONSPECIFIC ST & T-WAVE ABNORMALITY INFERIOR INFARCT OLD INCREASED RATE 07/16/16 Electronically Signed On 08-13-2016 19:32:27 EST by Estee Hickman
[2016-08-13] MEDS: MULTIVITAMINS/MINERALS THERAP 1 TAB PO SCH (21:57)
[2016-08-13 22:00] VITALS: BP 142/65
[2016-08-13] MEDS: TEMAZEPAM 15 MG CAP PO PRN (22:47)
[2016-08-14] MEDS: CEFEPIME HCL 2 GM in D5W MINI-BAG PLUS 50 ML IV SCH ×2 (04:27→17:12)
[2016-08-14 06:00] VITALS: BP 144/73
[2016-08-14] MEDS: LEVOTHYROXINE 0.088 MG TAB (88 MCG) PO SCH (06:21)
[2016-08-14 06:57] LABS: MEAN CORPUSCULAR HGB CONC 34.2 g/dl (32.0-36.5); MEAN CORPUSCULAR VOLUME 87.5 fl (80.0-96.0); RED CELL DISTRIBUTION WIDTH 12.6 % (11.5-14.5); WHITE BLOOD COUNT 9.6 K/mm3 (4.0-10.0)
[2016-08-14 07:28] LABS: ANION GAP 8 MEQ/L (8-16); BLOOD UREA NITROGEN 23 MG/DL (7-18); CALCIUM LEVEL 9.5 MG/DL (8.8-10.2); CARBON DIOXIDE LEVEL 35 MEQ/L (21-32); CHLORIDE LEVEL 90 MEQ/L (98-107); CREATININE FOR GFR 0.76 MG/DL (0.55-1.02); GLOMERULAR FILTRATION RATE > 60.0 (>39); GLUCOSE, FASTING 282 MG/DL (83-110); MAGNESIUM LEVEL 2.2 MG/DL (1.8-2.4); SODIUM LEVEL 133 MEQ/L (136-145)
[2016-08-14] MEDS: HumaLOG INSULIN (NovoLOG) PER UNIT SC SCH ×4 (07:30→21:24)
[2016-08-14] MEDS: methylPREDNISolone INJ 40 MG/1 ML VIAL (J2920) IV SCH ×2 (08:42→21:24)
[2016-08-14] MEDS: ENOXAPARIN 40 MG/0.4 ML SYRINGE (J1650) SC SCH (08:42)
[2016-08-14] MEDS: guaiFENesin SYRUP 200 MG/10 ML UDC PO PRN ×3 (08:42→21:23)
[2016-08-14] MEDS: amLODIPine 5 MG TAB PO SCH (08:43)
[2016-08-14] MEDS: GABAPENTIN 300 MG CAP PO SCH ×2 (08:43→21:24)
[2016-08-14] MEDS: ALLOPURINOL 300 MG TAB PO SCH (08:43)
[2016-08-14] MEDS: ASPIRIN 81 MG ENTERIC TAB PO SCH (08:43)
[2016-08-14] MEDS: CYANOCOBALAMIN 500 MCG TAB PO SCH (08:43)
[2016-08-14] MEDS: VITAMIN D 1,000 INTERNATIONAL UNITS TABLET PO SCH (08:43)
[2016-08-14] MEDS: BENZONATATE 100 MG CAP PO SCH ×3 (08:43→21:23)
[2016-08-14] MEDS: SENOKOT S TAB PO SCH ×2 (08:44→21:24)
[2016-08-14] MEDS: OMEPRAZOLE 20 MG CAP PO SCH (08:44)
[2016-08-14 14:00] VITALS: BP 132/65
[2016-08-14] MEDS: AZITHROMYCIN 250 MG TAB PO SCH (14:52)
--- NOTE | 2016-08-14 15:38 | EDDOCDS ---
Physician Documentation [facility] Name: Mary Bolanos Age: 80 yrs Sex: Female : 1935 Arrival Date: 08/12/2016 Time: 08:32 Bed 5 Private MD: Ozzy Martínez Disposition: 08/12/16 10:48 Hospitalization ordered by Zuleyka Elena for Inpatient Admission. Preliminary diagnosis is Pneumonia, unspecified organism. - Bed requested for M ICU. - Status is Inpatient Admission. [id number] - Condition is Stable. - Problem is new. - Symptoms are unchanged. Historical: - Allergies: Lipitor (Jaundice); Amoxicillin (Rash); Tussionex Pennkinetic ER (confusion); - Home Meds: 1. allopurinol 300 mg Oral tab 1 tab once daily (Last dose: 08/11/2016) 2. aspirin 81 mg Oral tab 1 tab once daily (Last dose: 08/11/2016) 3. Cinnamon 500 mg oral cap twice a day (Last dose: 08/11/2016) 4. glipizide 5 mg Oral tab 1 tab 2 times per day (Last dose: 08/11/2016) 5. multivitamin Oral tab daily (Last dose: 08/11/2016) 6. Neurontin 300 mg Oral cap twice a day (Last dose: 08/11/2016) 7. Norvasc 5 mg Oral tab 1 tab once daily (Last dose: 08/11/2016) 8. Plavix 75 mg Oral tab 1 tab once daily (Last dose: 08/11/2016) 9. potassium chloride 8 mEq Oral TbER 1 tab 3 times per day (Last dose: 08/11/2016) 10. prednisone 5 mg Oral tab once daily (Last dose: 08/11/2016) 11. Tessalon Perles 100 mg Oral cap 1 cap 3 times per day (Last dose: 08/11/2016) 12. Prilosec 40 mg Oral cpDR 1 cap once daily (Last dose: 08/11/2016) 13. Synthroid 88 mcg Oral tab 1 tab once daily (Last dose: 08/11/2016) 14. torsemide 20 mg oral tab 1 tab once daily (Last dose: 08/11/2016) 15. vitamin b12 500 mcg daily (Last dose: 08/11/2016) 16. Vitamin D3 1,000 unit oral tab daily (Last dose: 08/11/2016) - PMHx: Arthritis; Diabetes - NIDDM: controlled; GERD; Gout; Hypercholesterolemia; Hypertension; Thyroid problem; skin cancer; - PSHx: salivary gland removal; Cholecystectomy; Hernia repair; Laminectomy; Knee Arthroplasty, Right; abdominal obstruction - resect; - Social history: Smoking status: Patient states was never smoker of tobacco. No barriers to communication noted, The patient speaks fluent [place]. - Family history: Not pertinent. - : The pt / caregiver states he / she is on anticoagulants: Plavix. Home medication list is obtained from the patient. - Exposure Risk Screening:: None identified. Vital Signs: 08/12 08:41 BP 187 / 83; Pulse 109; Resp 22; Temp 98.4(TE); Pulse Ox 88% on 2 lpm NC; Weight 74.84 dem1 kg / 164.99 lbs (R); Height 4 ft. 11 in. (149.86 cm) (R); Pain 10/17; 09:11 BP 163 / 72 (auto/); js13 09:11 Pulse 96 MON; Resp 18; Pulse Ox 90% on 4 lpm NC; js13 09:24 BP 196 / 83 (auto/); js13 09:24 Pulse 112 MON; Resp 20; Pulse Ox 90% on 3 lpm NC; js13 09:39 BP 143 / 75 (auto/); js13 09:39 Pulse 96 MON; Resp 20; Pulse Ox 92% on 3 lpm NC; js13 09:54 BP 157 / 70 (auto/); js13 09:54 Pulse 102 MON; Resp 20; Pulse Ox 88% on 3 lpm NC; js13 10:09 BP 133 / 56 (auto/); js13 10:09 Pulse 100 MON; Resp 20; Pulse Ox 88% on 3 lpm NC; js13 10:24 BP 176 / 74 (auto/); js13 10:24 Pulse 102 MON; Resp 20; Pulse Ox 89% on 3 lpm NC; js13 10:39 BP 174 / 76 (auto/); js13 10:39 Pulse 104 MON; Resp 20; Pulse Ox 89% on 3 lpm NC; js13 10:54 BP 152 / 64 (auto/); js13 10:54 Pulse 102 MON; Resp 18; Pulse Ox 89% on 3 lpm NC; js13 11:09 BP 150 / 68 (auto/); js13 11:09 Pulse 94 MON; Resp 20; Pulse Ox 86% on 3 lpm NC; js13 11:39 BP 144 / 68 (auto/); js13 11:39 Pulse 100 MON; Resp 20; Pulse Ox 89% on 3 lpm NC; js13 11:54 BP 167 / 73 (auto/); js13 11:54 Pulse 90 MON; Resp 20; Pulse Ox 89% on 3 lpm NC; js13 12:09 BP 150 / 63 (auto/); js13 12:09 Pulse 94 MON; Resp 20; Pulse Ox 88% on 3 lpm NC; js13 12:24 BP 157 / 71 (auto/); js13 12:24 Pulse 94 MON; Resp 20; Pulse Ox 87% on 3 lpm NC; js13 12:39 BP 148 / 60 (auto/); js13 12:39 Pulse 90 MON; Resp 20; Pulse Ox 88% on 3 lpm NC; js13 12:54 BP 151 / 67 (auto/); js13 12:54 Pulse 98 MON; Resp 18; Pulse Ox 89% on 3 lpm NC; js13 13:09 BP 152 / 67 (auto/); js13 13:09 Pulse 102 MON; Resp 20; Pulse Ox 91% on 3 lpm NC; js13 13:24 BP 144 / 59 (auto/); js13 13:24 Pulse 98 MON; Resp 20; Pulse Ox 88% on 3 lpm NC; js13 13:39 BP 152 / 70 (auto/); js13 13:39 Pulse 94 MON; Resp 20; Temp 98.5(O); Pulse Ox 89% on 3 lpm NC; js13 13:54 BP 135 / 70 (auto/); js13 13:54 Pulse 92 MON; Resp 18; Pulse Ox 89% on 3 lpm NC; js13 14:09 BP 148 / 70 (auto/); js13 14:09 Pulse 98 MON; Resp 18; Pulse Ox 89% on 3 lpm NC; 13 08:41 Body Mass Index 33.33 (74.84 kg, 149.86 cm) dem1 MDM: 08:56 -Blood Culture (Adults Only), peripheral from different site, or from device/port/PICC bs6 etc. if present ordered. 08:56 Credit Cashier/Pulse Ox/q 15 min VS ordered. bs6 08:56 IV Saline Lock ordered. bs6 08:56 Oxygen at 4L/Min NC or Home dosage ordered. bs6 08:56 Rhythm Strip to chart ordered. bs6 08:57 -Blood Culture Ordered. EDMS 08:57 Basic Metabolic Profile Ordered. EDMS 08:57 CBC with Diff Ordered. EDMS 08:57 ECG WITH READING ER PHYS+CARDIAG ordered. EDMS 08:57 DVT US Lower Ordered. EDMS 08:57 Chest, 2 View (pa\E\lat) Ordered. EDMS 09:01 -Blood Culture (Adults Only), peripheral from different site, or from device/port/PICC lbd etc. if present complete. 09:02 Sputum Culture & Gram Stain Ordered. EDMS 09:03 BLOOD CULTURES Ordered. EDMS 09:14 Albuterol-Ipratropium 1 neb Nebulizer every 20 minutes x3 ordered. sd1 09:14 Call Respiratory ordered. sd1 09:15 Solu-MEDROL 125 mg IVP once ordered. sd1 09:15 Lactic Acid (Ni tube on ice) Ordered. EDMS 09:15 -Influenza A&B Rapid Antigen - Nose Ordered. EDMS 09:16 BNP Ordered. EDMS 09:17 Call Respiratory complete. lbd 09:20 DIFFERENTIAL NO CHARGE Ordered. EDMS 09:21 PLATELET ESTIMATE Ordered. EDMS 09:22 CARDIAC INJURY PROFILE Ordered. EDMS 09:22 TROPONIN Ordered. EDMS 09:30 BED REQUEST+ADM ordered. EDMS 09:32 CBC with Diff Reviewed. sd1 09:38 levofloxacin 750 mg IVPB once over 90 mins ordered. bs6 10:29 Basic Metabolic Profile Reviewed. sd1 10:29 CBC with Diff Reviewed. sd1 10:29 -Influenza A&B Rapid Antigen - Nose Reviewed. sd1 10:29 BNP Reviewed. sd1 10:29 PLATELET ESTIMATE Reviewed. sd1 10:29 CARDIAC INJURY PROFILE Reviewed. sd1 10:29 TROPONIN Reviewed. sd1 10:58 Financial registration complete. pm4 11:08 [place] [place] Payment Agreement was scanned into [employer] and attached to record. pm4 12:42 CARDIAC MARKER PANEL Ordered. EDMS 12:42 LACTIC ACID LEVEL, LACTATE Ordered. EDMS 12:44 CT Chest with contrast Ordered. EDMS 12:51 C REACTIVE PROTEIN QUANTITATIV Ordered. EDMS 12:52 Admission / Observation Status ordered. EDMS 12:52 CONSISTENT CARBOHYDRATES ordered. EDMS 12:52 PHYSICAL THERAPY EVAL & TREAT ordered. EDMS 08/13 12:36 T-Sheet-- Draft Copy was scanned into [employer] and attached to record. gb 12:37 ECG/EKG was scanned into [employer] and attached to record. gb Administered Medications: 08/12 09:28 Drug: Solu-MEDROL 125 mg [Solu-Medrol 500 mg intravenous solution (125 mg)] Route: IVP; srm Site: left antecubital; 09:30 Drug: Albuterol-Ipratropium 1 neb [ipratropium-albuterol 0.5 mg-3 mg(2.5 mg base)/3 mL kt1 nebulization soln (1 neb)] Route: Nebulizer; 09:45 Drug: Albuterol-Ipratropium 1 neb [ipratropium-albuterol 0.5 mg-3 mg(2.5 mg base)/3 mL kt1 nebulization soln (1 neb)] Route: Nebulizer; 10:02 Drug: Albuterol-Ipratropium 1 neb [ipratropium-albuterol 0.5 mg-3 mg(2.5 mg base)/3 mL kt1 nebulization soln (1 neb)] Route: Nebulizer; 10:03 Drug: levofloxacin 750 mg [levofloxacin 750 mg/150 mL in 5 % dextrose intravenous js13 piggyback] Route: IVPB; Infused Over: 90 mins; Site: left antecubital; 11:26 Follow up: IV Status: Completed infusion jc4 Signatures: Dispatcher [employer] EDVA Estee Hickman MD MD sd1 Daly, Linda, Bicycle Mechanic Unit lbd Karon Sheppard RN RN kpj Peters, Mary, RN RN mcp Barnhardt, Gloria, Reg Reg gb Dasha Bolanos RN RN js13 Latha Rothman, DO DO bs6 Yuri Leon, Reg Reg pm4 Muriel Beckman RN [facility] Linda Mcfarlane kt1 Dasha Bell RN jc4 The chart was reviewed and I authenticate all verbal orders and agree with the evaluation and treatment provided.Corrections: (The following items were deleted from the chart) 09:15 CARDIAC INJURY PROFILE+LAB ordered. EDMS EDMS : 09:15 TROPONIN+LAB ordered. EDMS EDMS 12:51 12:42 C REACTIVE PROTEIN QUANTITATIV ordered. EDMS EDMS Attachments: 11:08 [facility] Payment Agreement pm4 08/13 12:36 T-Sheet-- Draft Copy gb 12:37 ECG/EKG gb Chart Complete MTDD
--- NOTE | 2016-08-14 15:38 | EDDOCDS ---
Nurse's Notes [facility] Name: Mary Bolanos Age: 80 yrs Sex: Female : 1935 Arrival Date: 08/12/2016 Time: 08:32 Bed 5 Private MD: Ozzy Martínez Diagnosis: Pneumonia, unspecified organism Presentation: 08/12 08:33 Presenting complaint: EMS states: Diagnosed 2 months ago with lung cancer. Call today mcp was for productive cough and shortness of breath. Albuterol neb given by EMS, SL established in left AC #18, FSBS--339. Adult Sepsis Screening: The patient does not have new or worsening altered mentation. Systolic blood pressure is greater than 100. Suicide/Homicide risk assessment- the patient denies having any suicidal and/or homicidal ideations and does not present with any other emotional, behavioral or mental health complaints. Status: Patient is not a waiter/waitress room service or dependent. Transition of care: patient was not received from another setting of care. 08:33 Acuity: JANETTE Level 3 [facility] 08:33 Method Of Arrival: Ambulance [facility] 13:46 Adult Sepsis Screening: Patient's respiratory rate is less than 22. Patient has a qSOFA js13 score of 0- Negative Sepsis Screen. Triage Assessment: 08:44 General: Appears in no apparent distress, Behavior is cooperative. Pain: Location: mcp chest from coughing Pain currently is 4 out of 10 on a pain scale. Respiratory: Onset: The symptoms/episode began/occurred gradually, Airway is patent Respiratory effort is even, labored, Breath sounds with rhonchi bilaterally. Derm: Skin is pink, warm & dry. Historical: - Allergies: Lipitor (Jaundice); Amoxicillin (Rash); Tussionex Pennkinetic ER (confusion); - Home Meds: 1. allopurinol 300 mg Oral tab 1 tab once daily (Last dose: 08/11/2016) 2. aspirin 81 mg Oral tab 1 tab once daily (Last dose: 08/11/2016) 3. Cinnamon 500 mg oral cap twice a day (Last dose: 08/11/2016) 4. glipizide 5 mg Oral tab 1 tab 2 times per day (Last dose: 08/11/2016) 5. multivitamin Oral tab daily (Last dose: 08/11/2016) 6. Neurontin 300 mg Oral cap twice a day (Last dose: 08/11/2016) 7. Norvasc 5 mg Oral tab 1 tab once daily (Last dose: 08/11/2016) 8. Plavix 75 mg Oral tab 1 tab once daily (Last dose: 08/11/2016) 9. potassium chloride 8 mEq Oral TbER 1 tab 3 times per day (Last dose: 08/11/2016) 10. prednisone 5 mg Oral tab once daily (Last dose: 08/11/2016) 11. Tessalon Perles 100 mg Oral cap 1 cap 3 times per day (Last dose: 08/11/2016) 12. Prilosec 40 mg Oral cpDR 1 cap once daily (Last dose: 08/11/2016) 13. Synthroid 88 mcg Oral tab 1 tab once daily (Last dose: 08/11/2016) 14. torsemide 20 mg oral tab 1 tab once daily (Last dose: 08/11/2016) 15. vitamin b12 500 mcg daily (Last dose: 08/11/2016) 16. Vitamin D3 1,000 unit oral tab daily (Last dose: 08/11/2016) - PMHx: Arthritis; Diabetes - NIDDM: controlled; GERD; Gout; Hypercholesterolemia; Hypertension; Thyroid problem; skin cancer; - PSHx: salivary gland removal; Cholecystectomy; Hernia repair; Laminectomy; Knee Arthroplasty, Right; abdominal obstruction - resect; - Social history: Smoking status: Patient states was never smoker of tobacco. No barriers to communication noted, The patient speaks fluent Slovak. - Family history: Not pertinent. - : The pt / caregiver states he / she is on anticoagulants: Plavix. Home medication list is obtained from the patient. - Exposure Risk Screening:: None identified. Screenin:15 Screening information is obtained from the patient. Fall risk: At risk due to age. js13 Assistance ADL's: requires no assistance with activities of daily living. Abuse/DV Screen: The patient / caregiver reports he/she is: not in a situation that causes fear, pain or injury. Nutritional screening: No deficits noted. Advance Directives: There is no active DNR order. home support is adequate. Assessment: 09:15 General: Appears in no apparent distress, comfortable, Behavior is appropriate for age, js13 cooperative. Pain: Denies pain. Neurological: Level of Consciousness is awake, alert. Cardiovascular: Rhythm is sinus rhythm Chest pain is denied. Respiratory: Airway is patent Respiratory effort is even, unlabored, Respiratory pattern is regular, symmetrical, Breath sounds with rhonchi. Derm: Skin is pink, warm & dry. 09:15 General: MD aware of patients FSBS.. js13 10:20 General: Appears in no apparent distress, comfortable, Behavior is appropriate for age, js13 cooperative. Pain: Denies pain. Neurological: Level of Consciousness is awake, alert. Cardiovascular: Rhythm is sinus rhythm Chest pain is denied. Respiratory: Airway is patent Respiratory effort is even, unlabored, Respiratory pattern is regular, symmetrical, Breath sounds with rhonchi. Derm: Skin is pink, warm & dry. 11:03 Adult Sepsis Screening: The patient does not have new or worsening altered mentation. js13 Patient's respiratory rate is less than 22. Systolic blood pressure is greater than 100. Patient has a qSOFA score of 0- Negative Sepsis Screen. General: Appears in no apparent distress, comfortable, Behavior is appropriate for age, cooperative. Pain: Denies pain. Neurological: Level of Consciousness is awake, alert. Cardiovascular: Rhythm is sinus rhythm Chest pain is denied. Respiratory: Airway is patent Respiratory effort is even, unlabored, Respiratory pattern is regular, symmetrical. Derm: Skin is pink, warm & dry. 12:05 General: Appears in no apparent distress, comfortable, Behavior is appropriate for age, js13 cooperative. Pain: Denies pain. Neurological: Level of Consciousness is awake, alert. Cardiovascular: Rhythm is sinus rhythm Chest pain is denied. Respiratory: Airway is patent Respiratory effort is even, unlabored, Respiratory pattern is regular, symmetrical, Breath sounds are diminished. Derm: Skin is pink, warm & dry. 13:15 Adult Sepsis Screening: The patient does not have new or worsening altered mentation. js13 Patient's respiratory rate is less than 22. Systolic blood pressure is greater than 100. Patient has a qSOFA score of 0- Negative Sepsis Screen. General: Appears in no apparent distress, Behavior is appropriate for age, cooperative. Pain: Denies pain. Neurological: Level of Consciousness is awake, alert. Cardiovascular: Rhythm is sinus rhythm Chest pain is denied. Respiratory: Airway is patent Respiratory effort is even, Respiratory pattern is regular, Breath sounds are diminished. Derm: Skin is pink, warm & dry. 14:19 General: Appears in no apparent distress, comfortable, Behavior is appropriate for age, js13 cooperative. Pain: Denies pain. Neurological: Level of Consciousness is awake, alert. Cardiovascular: Rhythm is sinus rhythm Chest pain is denied. Respiratory: Airway is patent Respiratory effort is even, unlabored, Respiratory pattern is regular, symmetrical, Breath sounds with rhonchi Breath sounds are diminished. Derm: Skin is pink, warm & dry. Vital Signs: 08:41 BP 187 / 83; Pulse 109; Resp 22; Temp 98.4(TE); Pulse Ox 88% on 2 lpm NC; Weight 74.84 dem1 kg (R); Height 4 ft. 11 in. (149.86 cm) (R); Pain 3; 09:11 BP 163 / 72 (auto/); js13 09:11 Pulse 96 MON; Resp 18; Pulse Ox 90% on 4 lpm NC; js13 09:24 BP 196 / 83 (auto/); js13 09:24 Pulse 112 MON; Resp 20; Pulse Ox 90% on 3 lpm NC; js13 09:39 BP 143 / 75 (auto/); js13 09:39 Pulse 96 MON; Resp 20; Pulse Ox 92% on 3 lpm NC; js13 09:54 BP 157 / 70 (auto/); js13 09:54 Pulse 102 MON; Resp 20; Pulse Ox 88% on 3 lpm NC; js13 10:09 BP 133 / 56 (auto/); js13 10:09 Pulse 100 MON; Resp 20; Pulse Ox 88% on 3 lpm NC; js13 10:24 BP 176 / 74 (auto/); js13 10:24 Pulse 102 MON; Resp 20; Pulse Ox 89% on 3 lpm NC; js13 10:39 BP 174 / 76 (auto/); js13 10:39 Pulse 104 MON; Resp 20; Pulse Ox 89% on 3 lpm NC; js13 10:54 BP 152 / 64 (auto/); js13 10:54 Pulse 102 MON; Resp 18; Pulse Ox 89% on 3 lpm NC; js13 11:09 BP 150 / 68 (auto/); js13 11:09 Pulse 94 MON; Resp 20; Pulse Ox 86% on 3 lpm NC; js13 11:39 BP 144 / 68 (auto/); js13 11:39 Pulse 100 MON; Resp 20; Pulse Ox 89% on 3 lpm NC; js13 11:54 BP 167 / 73 (auto/); js13 11:54 Pulse 90 MON; Resp 20; Pulse Ox 89% on 3 lpm NC; js13 12:09 BP 150 / 63 (auto/); js13 12:09 Pulse 94 MON; Resp 20; Pulse Ox 88% on 3 lpm NC; js13 12:24 BP 157 / 71 (auto/); js13 12:24 Pulse 94 MON; Resp 20; Pulse Ox 87% on 3 lpm NC; js13 12:39 BP 148 / 60 (auto/); js13 12:39 Pulse 90 MON; Resp 20; Pulse Ox 88% on 3 lpm NC; js13 12:54 BP 151 / 67 (auto/); js13 12:54 Pulse 98 MON; Resp 18; Pulse Ox 89% on 3 lpm NC; js13 13:09 BP 152 / 67 (auto/); js13 13:09 Pulse 102 MON; Resp 20; Pulse Ox 91% on 3 lpm NC; js13 13:24 BP 144 / 59 (auto/); js13 13:24 Pulse 98 MON; Resp 20; Pulse Ox 88% on 3 lpm NC; js13 13:39 BP 152 / 70 (auto/); js13 13:39 Pulse 94 MON; Resp 20; Temp 98.5(O); Pulse Ox 89% on 3 lpm NC; js13 13:54 BP 135 / 70 (auto/); js13 13:54 Pulse 92 MON; Resp 18; Pulse Ox 89% on 3 lpm NC; js13 14:09 BP 148 / 70 (auto/); js13 14:09 Pulse 98 MON; Resp 18; Pulse Ox 89% on 3 lpm NC; js13 08:41 Body Mass Index 33.33 (74.84 kg, 149.86 cm) dem1 Vitals: 08:41 Log In Time N/A - ambulance arrival. dem1 ED Course: 08:33 Patient visited by Airam Castañeda, Body Designer. lbd 08:33 Ozzy Martínez is Private Physician. lbd 08:33 Patient moved to Waiting lbd 08:34 [facility] bs6 08:34 Estee Hickman MD is Attending Physician. bs6 08:34 Patient visited by Latha Rothman DO. bs6 08:34 Patient visited by Latha Rothman DO. bs6 08:34 Patient moved to 5 lbd 08:36 Triage Initiated mcp 08:38 Dasha Bolanos,RN is Primary Nurse. js13 08:42 Patient visited by Raad Ryan. dem1 08:47 Patient visited by Ana Turk RN. mcp 09:06 Patient visited by Raad Ryan. dem1 09:06 EKG done. (by ED staff). Reviewed by Latha Rothman DO. dem1 09:15 The patient / caregiver is instructed regarding the plan of care and ED course. Placed js13 in gown. Bed in low position. Call light in reach. Side rails up X2. software quality assurance analyst on. Pulse ox on. NIBP on. 09:15 Maintain field IV. Dressing intact. Good blood return noted. Site clean & dry. Gauge & js13 site: 18 gauge LAC. No procedures done that require assistance. Labs drawn. (by ED staff). Sent per order to lab. Labs/Blood culture drawn. O2 via nasal cannula \T\ 4L/min. 09:18 Patient visited by Dasha Bolanos RN. js13 09:18 BNP Sent. js13 09:18 Lactic Acid (Ni tube on ice) Sent. js13 09:23 TROPONIN Sent. js13 09:23 CARDIAC INJURY PROFILE Sent. js13 09:23 DIFFERENTIAL NO CHARGE Sent. js13 09:33 -Influenza A&B Rapid Antigen - Nose Sent. srm 09:57 Patient visited by Sonya Ren PCA. ct3 10:13 Patient moved to Ultrasound br3 10:45 Patient moved to 5 br3 10:48 Zuleyka Elena is Hospitalizing Provider. bs6 11:04 Patient visited by Dasha Bolanos RN. js13 11:08 [facility] Payment Agreement was scanned into [email or web address] and attached to record. pm4 12:08 Patient visited by Dasha Bolanos,GRACE. js13 13:48 LACTIC ACID LEVEL, LACTATE Sent. js13 13:48 CARDIAC MARKER PANEL Sent. js13 08/13 12:36 T-Sheet-- Draft Copy was scanned into [email or web address] and attached to record. gb 12:37 ECG/EKG was scanned into [email or web address] and attached to record. gb Administered Medications: 08/12 09:28 Drug: Solu-MEDROL 125 mg [Solu-Medrol 500 mg intravenous solution (125 mg)] Route: IVP; srm Site: left antecubital; 09:30 Drug: Albuterol-Ipratropium 1 neb [ipratropium-albuterol 0.5 mg-3 mg(2.5 mg base)/3 mL kt1 nebulization soln (1 neb)] Route: Nebulizer; 09:45 Drug: Albuterol-Ipratropium 1 neb [ipratropium-albuterol 0.5 mg-3 mg(2.5 mg base)/3 mL kt1 nebulization soln (1 neb)] Route: Nebulizer; 10:02 Drug: Albuterol-Ipratropium 1 neb [ipratropium-albuterol 0.5 mg-3 mg(2.5 mg base)/3 mL kt1 nebulization soln (1 neb)] Route: Nebulizer; 10:03 Drug: levofloxacin 750 mg [levofloxacin 750 mg/150 mL in 5 % dextrose intravenous js13 piggyback] Route: IVPB; Infused Over: 90 mins; Site: left antecubital; 11:26 Follow up: IV Status: Completed infusion jc4 RT: 09:30 Initial Med Neb Given as ordered Patient was instructed and evaluated on procedure. kt1 Respiratory: Breath sounds are diminished bilaterally. 09:45 Subsequent Med Neb Given as ordered Patient tolerated procedure well without adverse kt1 effect. 10:02 Subsequent Med Neb Given as ordered Patient tolerated procedure well without adverse kt1 effect. Order Results: Lab Order: Basic Metabolic Profile; SPEC'M 08/12/16 08:56 Test: GLUCOSE, FASTING; Value: 363; Range: 83-110; Abnormal: Above high normal; Units: MG/DL; Status: F Test: BLOOD UREA NITROGEN; Value: 19; Range: 7-18; Abnormal: Above high normal; Units: MG/DL; Status: F Test: CREATININE FOR GFR; Value: 1.01; Range: 0.55-1.02; Units: MG/DL; Status: F Test: GLOMERULAR FILTRATION RATE; Value: 56.3; Range: >39; Status: F Test: SODIUM LEVEL; Value: 133; Range: 136-145; Abnormal: Below low normal; Units: MEQ/L; Status: F Test: POTASSIUM SERUM; Value: 3.6; Range: 3.5-5.1; Units: MEQ/L; Status: F Test: CHLORIDE LEVEL; Value: 85; Range: 98-107; Abnormal: Below low normal; Units: MEQ/L; Status: F Test: CARBON DIOXIDE LEVEL; Value: 38; Range: 21-32; Abnormal: Above high normal; Units: MEQ/L; Status: F Test: ANION GAP; Value: 10; Range: 8-16; Units: MEQ/L; Status: F Test: CALCIUM LEVEL; Value: 9.7; Range: 8.8-10.2; Units: MG/DL; Status: F Test Note: ; Units are mL/min/1.73 m2 Chronic Kidney Disease Staging per NKF: Stage I & II GFR >=60 Normal to Mildly Decreased Stage III GFR 30-59 Moderately Decreased Stage IV GFR 15-29 Severely Decreased Stage V GFR <15 Very Little GFR Left ESRD GFR <15 on COSMETIC ASSEMBLER Test: C REACTIVE PROTEIN QUANTITATIV; Range: 0.00-0.30; Units: MG/DL; Status: I Lab Order: CBC with Diff; SPEC'M 08/12/16 08:56 Test: WHITE BLOOD COUNT; Value: 13.0; Range: 4.0-10.0; Abnormal: Above high normal; Units: K/mm3; Status: F Test: RED BLOOD COUNT; Value: 4.85; Range: 4.00-5.40; Units: M/mm3; Status: F Test: HEMOGLOBIN; Value: 14.5; Range: 12.0-16.0; Units: g/dl; Status: F Test: HEMATOCRIT; Value: 42.5; Range: 36.0-47.0; Units: %; Status: F Test: MEAN CORPUSCULAR VOLUME; Value: 87.7; Range: 80.0-96.0; Units: fl; Status: F Test: MEAN CORPUSCULAR HEMOGLOBIN; Value: 29.8; Range: 27.0-33.0; Units: pg; Status: F Test: MEAN CORPUSCULAR HGB CONC; Value: 34.0; Range: 32.0-36.5; Units: g/dl; Status: F Test: RED CELL DISTRIBUTION WIDTH; Value: 12.9; Range: 11.5-14.5; Units: %; Status: F Test: PLATELET COUNT, AUTOMATED; Value: 202; Range: 150-450; Units: k/mm3; Status: F Test: NEUTROPHILS; Value: 78; Range: 35-75; Abnormal: Above high normal; Units: %; Status: F Test: BANDS; Value: 7; Range: < 11; Units: %; Status: F Test: LYMPHOCYTES; Value: 3; Range: 16-52; Abnormal: Below low normal; Units: %; Status: F Test: MONOCYTES; Value: 4; Range: 0-8; Units: %; Status: F Test: ATYPICAL LYMPH; Value: 8; Range: 0-5; Abnormal: Above high normal; Units: %; Status: F Test: RBC MORPHOLOGY; Value: NORMAL; Status: F Lab Order: Sputum Culture & Gram Stain; SPEC'M 08/12/16 08:58 Test: GRAM STAIN; Value: GRAM STAIN RESULT; Status: F Test: GRAM STAIN; Value: QUALITY: GOOD; Status: F Test: GRAM STAIN; Value: MANY WBCS; Status: F Test: GRAM STAIN; Value: FEW EPITHELIAL CELLS; Status: F Test: GRAM STAIN; Value: MANY GRAM POSITIVE COCCI IN PAIRS, CHAINS AND CLUSTERS; Status: F Lab Order: Lactic Acid (Ni tube on ice); SPEC'M 08/12/16 08:56 Test: LACTIC ACID LEVEL, LACTATE; Value: 2.5; Range: 0.4-2.0; Abnormal: Above upper panic limits; Units: MMOL/L; Status: F Lab Order: -Influenza A&B Rapid Antigen - Nose; SPEC'M 08/12/16 09:31 Test: INFLUENZA A RAPID SCR by ICA; Value: INFLUENZA A RESULTS NEGATIVE; Status: F Test: INFLUENZA A RAPID SCR by ICA; Value: Comments:; Status: F Test: INFLUENZA B RAPID SCR by ICA; Value: INFLUENZA B RESULTS NEGATIVE; Status: F Test Note: ; The Influenza test is a direct rapid immunoassay for the qualitative detection of Influenza viral antigen. Cell culture (Viral Culture) testing should be considered to confirm NEGATIVE results and to assist in detecting other viruses that can provide similar clinical symptoms. Please contact the lab within 24 hours ([phone] if confirmatory testing is desired. Lab Order: BNP; SPEC'M 08/12/16 08:56 Test: BRAIN NATRIURETIC PEPTIDE; Value: 39.7; Range: <100; Units: PG/ML; Status: F Lab Order: PLATELET ESTIMATE; SPECM 08/12/16 08:56 Test: PLATELET ESTIMATE; Value: NORMAL; Range: NORMAL; Status: F Lab Order: CARDIAC INJURY PROFILE; SPECM 08/12/16 08:56 Test: CPK CREATINE PHOSPHOKINASE; Value: 54; Range: 26-192; Units: U/L; Status: F Test: CK-MB VALUE MASS; Value: 1.5; Range: 0.0-3.6; Units: NG/ML; Status: F Test: MB/CK RELATIVE INDEX; Value: 2.77; Range: < OR =4; Status: F Test Note: ; DIAGNOSIS CRITERIA MMB ng/ml Relative Index (RI) NON-AMI < or = 5 N/A NI ZONE > 5 < or = 4 AMI > 5 > 4 Lab Order: TROPONIN; 08/12/16 08:56 Test: TROPONIN I; Value: 0.02; Range: < 0.10; Units: NG/ML; Status: F Test Note: ; Troponin I Reference Interval for [place] LOCI: 99th Percentile= 0.00-0.045 ng/ml Risk Stratification: <= 0.10 ng/ml Decreased Risk for Adverse Clinical Events. 0.10-1.50 ng/ml Increased Risk for Adverse Clinical Events. Evaluation of additional criterion and/or repeat testing in 2-6 hours is suggested to rule out myocardial damage. >= 1.50 ng/ml Indicative of Myocardial Injury. Lab Order: C REACTIVE PROTEIN QUANTITATIV; SPECM 08/12/16 08:56 Test: C REACTIVE PROTEIN QUANTITATIV; Value: 22.60; Range: 0.00-0.30; Abnormal: Above high normal; Units: MG/DL; Status: F Outcome: 10:48 Decision to Hospitalize by Provider. bs6 13:39 Discharge Assessment: Patient awake, alert and oriented x 3. No cognitive and/or js13 functional deficits noted. Patient verbalized understanding of disposition instructions. patient administered narcotics - no. Condition: stable. CT Study completed. Ultrasound Study completed. Property :Personal belongings accompany Pt. 14:09 The following High Risk Discharge criteria are identified: None. Admitted to ICU js13 accompanied by nurse, accompanied by tech, family with patient, via stretcher, with oxygen, on monitor, with chart. Admission hand-off: Report called to Yesenia Cadet RN. 14:37 Patient left the ED. js13 Signatures: Airam Castañeda, Body Designer Unit lbd Muriel Beckman RN RN srm Ana Turk RN RN Cora Falk, Reg Reg gb Denys,Linda kt1 Nayeli Sage br3 Dasha Bell RN RN jc4 Sonya Ren, NUCLEAR PHYSICIAN NUCLEAR PHYSICIAN ct3 Raad Ryan1 Dasha Bolanos RN RN js13 Latha Rothman, DO bs6 Yuri Leon, Reg Reg pm4 Corrections: (The following items were deleted from the chart) 09:20 09:18 TROPONIN+LAB sent. [facility] EDMS 09:20 09:18 CARDIAC INJURY PROFILE+LAB sent. [facility] EDMS 10:04 09:15 Maintain field IV. Dressing intact. Good blood return noted. Site clean & dry. 13 Gauge & site: 18 gauge RAC. js13 Chart Complete MTDD
--- NOTE | 2016-08-14 15:38 | EDDOCDS ---
Physician Documentation [facility] Name: Mary Bolanos Age: 80 yrs Sex: Female : 1935 Arrival Date: 08/12/2016 Time: 08:32 Bed 5 Private MD: Ozzy Martínez Disposition: 08/12/16 10:48 Hospitalization ordered by Zuleyka Elena for Inpatient Admission. Preliminary diagnosis is Pneumonia, unspecified organism. - Bed requested for M ICU. - Status is Inpatient Admission. [id number] - Condition is Stable. - Problem is new. - Symptoms are unchanged. Historical: - Allergies: Lipitor (Jaundice); Amoxicillin (Rash); Tussionex Pennkinetic ER (confusion); - Home Meds: 1. allopurinol 300 mg Oral tab 1 tab once daily (Last dose: 08/11/2016) 2. aspirin 81 mg Oral tab 1 tab once daily (Last dose: 08/11/2016) 3. Cinnamon 500 mg oral cap twice a day (Last dose: 08/11/2016) 4. glipizide 5 mg Oral tab 1 tab 2 times per day (Last dose: 08/11/2016) 5. multivitamin Oral tab daily (Last dose: 08/11/2016) 6. Neurontin 300 mg Oral cap twice a day (Last dose: 08/11/2016) 7. Norvasc 5 mg Oral tab 1 tab once daily (Last dose: 08/11/2016) 8. Plavix 75 mg Oral tab 1 tab once daily (Last dose: 08/11/2016) 9. potassium chloride 8 mEq Oral TbER 1 tab 3 times per day (Last dose: 08/11/2016) 10. prednisone 5 mg Oral tab once daily (Last dose: 08/11/2016) 11. Tessalon Perles 100 mg Oral cap 1 cap 3 times per day (Last dose: 08/11/2016) 12. Prilosec 40 mg Oral cpDR 1 cap once daily (Last dose: 08/11/2016) 13. Synthroid 88 mcg Oral tab 1 tab once daily (Last dose: 08/11/2016) 14. torsemide 20 mg oral tab 1 tab once daily (Last dose: 08/11/2016) 15. vitamin b12 500 mcg daily (Last dose: 08/11/2016) 16. Vitamin D3 1,000 unit oral tab daily (Last dose: 08/11/2016) - PMHx: Arthritis; Diabetes - NIDDM: controlled; GERD; Gout; Hypercholesterolemia; Hypertension; Thyroid problem; skin cancer; - PSHx: salivary gland removal; Cholecystectomy; Hernia repair; Laminectomy; Knee Arthroplasty, Right; abdominal obstruction - resect; - Social history: Smoking status: Patient states was never smoker of tobacco. No barriers to communication noted, The patient speaks fluent Khmer. - Family history: Not pertinent. - : The pt / caregiver states he / she is on anticoagulants: Plavix. Home medication list is obtained from the patient. - Exposure Risk Screening:: None identified. Vital Signs: 08/12 08:41 BP 187 / 83; Pulse 109; Resp 22; Temp 98.4(TE); Pulse Ox 88% on 2 lpm NC; Weight 74.84 dem1 kg / 164.99 lbs (R); Height 4 ft. 11 in. (149.86 cm) (R); Pain 10/17; 09:11 BP 163 / 72 (auto/); js13 09:11 Pulse 96 MON; Resp 18; Pulse Ox 90% on 4 lpm NC; js13 09:24 BP 196 / 83 (auto/); js13 09:24 Pulse 112 MON; Resp 20; Pulse Ox 90% on 3 lpm NC; js13 09:39 BP 143 / 75 (auto/); js13 09:39 Pulse 96 MON; Resp 20; Pulse Ox 92% on 3 lpm NC; js13 09:54 BP 157 / 70 (auto/); js13 09:54 Pulse 102 MON; Resp 20; Pulse Ox 88% on 3 lpm NC; js13 10:09 BP 133 / 56 (auto/); js13 10:09 Pulse 100 MON; Resp 20; Pulse Ox 88% on 3 lpm NC; js13 10:24 BP 176 / 74 (auto/); js13 10:24 Pulse 102 MON; Resp 20; Pulse Ox 89% on 3 lpm NC; js13 10:39 BP 174 / 76 (auto/); js13 10:39 Pulse 104 MON; Resp 20; Pulse Ox 89% on 3 lpm NC; js13 10:54 BP 152 / 64 (auto/); js13 10:54 Pulse 102 MON; Resp 18; Pulse Ox 89% on 3 lpm NC; js13 11:09 BP 150 / 68 (auto/); js13 11:09 Pulse 94 MON; Resp 20; Pulse Ox 86% on 3 lpm NC; js13 11:39 BP 144 / 68 (auto/); js13 11:39 Pulse 100 MON; Resp 20; Pulse Ox 89% on 3 lpm NC; js13 11:54 BP 167 / 73 (auto/); js13 11:54 Pulse 90 MON; Resp 20; Pulse Ox 89% on 3 lpm NC; js13 12:09 BP 150 / 63 (auto/); js13 12:09 Pulse 94 MON; Resp 20; Pulse Ox 88% on 3 lpm NC; js13 12:24 BP 157 / 71 (auto/); js13 12:24 Pulse 94 MON; Resp 20; Pulse Ox 87% on 3 lpm NC; js13 12:39 BP 148 / 60 (auto/); js13 12:39 Pulse 90 MON; Resp 20; Pulse Ox 88% on 3 lpm NC; js13 12:54 BP 151 / 67 (auto/); js13 12:54 Pulse 98 MON; Resp 18; Pulse Ox 89% on 3 lpm NC; js13 13:09 BP 152 / 67 (auto/); js13 13:09 Pulse 102 MON; Resp 20; Pulse Ox 91% on 3 lpm NC; js13 13:24 BP 144 / 59 (auto/); js13 13:24 Pulse 98 MON; Resp 20; Pulse Ox 88% on 3 lpm NC; js13 13:39 BP 152 / 70 (auto/); js13 13:39 Pulse 94 MON; Resp 20; Temp 98.5(O); Pulse Ox 89% on 3 lpm NC; js13 13:54 BP 135 / 70 (auto/); js13 13:54 Pulse 92 MON; Resp 18; Pulse Ox 89% on 3 lpm NC; js13 14:09 BP 148 / 70 (auto/); js13 14:09 Pulse 98 MON; Resp 18; Pulse Ox 89% on 3 lpm NC; 13 08:41 Body Mass Index 33.33 (74.84 kg, 149.86 cm) dem1 MDM: 08:56 -Blood Culture (Adults Only), peripheral from different site, or from device/port/PICC bs6 etc. if present ordered. 08:56 [employer] Farmer/Pulse Ox/q 15 min VS ordered. bs6 08:56 IV Saline Lock ordered. bs6 08:56 Oxygen at 4L/Min NC or Home dosage ordered. bs6 08:56 Rhythm Strip to chart ordered. bs6 08:57 -Blood Culture Ordered. EDMS 08:57 Basic Metabolic Profile Ordered. EDMS 08:57 CBC with Diff Ordered. EDMS 08:57 ECG WITH READING ER PHYS+CARDIAG ordered. EDMS 08:57 DVT US Lower Ordered. EDMS 08:57 Chest, 2 View (pa\E\lat) Ordered. EDMS 09:01 -Blood Culture (Adults Only), peripheral from different site, or from device/port/PICC lbd etc. if present complete. 09:02 Sputum Culture & Gram Stain Ordered. EDMS 09:03 BLOOD CULTURES Ordered. EDMS 09:14 Albuterol-Ipratropium 1 neb Nebulizer every 20 minutes x3 ordered. sd1 09:14 Call Respiratory ordered. sd1 09:15 Solu-MEDROL 125 mg IVP once ordered. sd1 09:15 Lactic Acid (In tube on ice) Ordered. EDMS 09:15 -Influenza A&B Rapid Antigen - Nose Ordered. EDMS 09:16 BNP Ordered. EDMS 09:17 Call Respiratory complete. lbd 09:20 DIFFERENTIAL NO CHARGE Ordered. EDMS 09:21 PLATELET ESTIMATE Ordered. EDMS 09:22 CARDIAC INJURY PROFILE Ordered. EDMS 09:22 TROPONIN Ordered. EDMS 09:30 BED REQUEST+ADM ordered. EDMS 09:32 CBC with Diff Reviewed. sd1 09:38 levofloxacin 750 mg IVPB once over 90 mins ordered. bs6 10:29 Basic Metabolic Profile Reviewed. sd1 10:29 CBC with Diff Reviewed. sd1 10:29 -Influenza A&B Rapid Antigen - Nose Reviewed. sd1 10:29 BNP Reviewed. sd1 10:29 PLATELET ESTIMATE Reviewed. sd1 10:29 CARDIAC INJURY PROFILE Reviewed. sd1 10:29 TROPONIN Reviewed. sd1 10:58 Financial registration complete. pm4 11:08 [facility] [place] was scanned into [employer] and attached to record. pm4 12:42 CARDIAC MARKER PANEL Ordered. EDMS 12:42 LACTIC ACID LEVEL, LACTATE Ordered. EDMS 12:44 CT Chest with contrast Ordered. EDMS 12:51 C REACTIVE PROTEIN QUANTITATIV Ordered. EDMS 12:52 Admission / Observation Status ordered. EDMS 12:52 CONSISTENT CARBOHYDRATES ordered. EDMS 12:52 PHYSICAL THERAPY EVAL & TREAT ordered. EDMS 08/13 12:36 T-Sheet-- Draft Copy was scanned into [employer] and attached to record. gb 12:37 ECG/EKG was scanned into [employer] and attached to record. gb Administered Medications: 08/12 09:28 Drug: Solu-MEDROL 125 mg [Solu-Medrol 500 mg intravenous solution (125 mg)] Route: IVP; srm Site: left antecubital; 09:30 Drug: Albuterol-Ipratropium 1 neb [ipratropium-albuterol 0.5 mg-3 mg(2.5 mg base)/3 mL kt1 nebulization soln (1 neb)] Route: Nebulizer; 09:45 Drug: Albuterol-Ipratropium 1 neb [ipratropium-albuterol 0.5 mg-3 mg(2.5 mg base)/3 mL kt1 nebulization soln (1 neb)] Route: Nebulizer; 10:02 Drug: Albuterol-Ipratropium 1 neb [ipratropium-albuterol 0.5 mg-3 mg(2.5 mg base)/3 mL kt1 nebulization soln (1 neb)] Route: Nebulizer; 10:03 Drug: levofloxacin 750 mg [levofloxacin 750 mg/150 mL in 5 % dextrose intravenous js13 piggyback] Route: IVPB; Infused Over: 90 mins; Site: left antecubital; 11:26 Follow up: IV Status: Completed infusion jc4 Signatures: Dispatcher [employer] EDME Estee Hickman MD MD sd1 Daly, Linda, Production Line Solderer Unit lbd Karon Sheppard RN RN kpj Peters, Mary, RN RN mcp Barnhardt, Gloria, Reg Reg gb Dasha Bolanos RN RN js13 Latha Rothman, DO DO bs6 Yuri Leon, Reg Reg pm4 Muriel Beckman RN [facility] Linda Mcfarlane kt1 Dasha Bell RN jc4 The chart was reviewed and I authenticate all verbal orders and agree with the evaluation and treatment provided.Corrections: (The following items were deleted from the chart) 09:15 CARDIAC INJURY PROFILE+LAB ordered. EDMS EDMS : 09:15 TROPONIN+LAB ordered. EDMS EDMS 12:51 12:42 C REACTIVE PROTEIN QUANTITATIV ordered. EDMS EDMS Attachments: 11:08 [facility] Payment Agreement pm4 08/13 12:36 T-Sheet-- Draft Copy gb 12:37 ECG/EKG gb Chart Complete MTDD
--- NOTE | 2016-08-14 19:03 | IPN ---
DATE: 08/14/2016 The patient seen and examined. No acute events overnight. Continue to have persistent cough. Denies any fever or chills, chest pain, pressure or discomfort. VITAL SIGNS: Temperature 97.6, pulse 85, respirations 18, blood pressure 132/65, pulse oximetry 93% on 3 liters nasal cannula. LABORATORY: WBC 9.6, hemoglobin and hematocrit 13.5/39.3, platelet 222. Chemistry: Sodium 133, potassium 4, chloride 90, bicarbonate 35, BUN 23, creatinine 0.76. PHYSICAL EXAMINATION: GENERAL: The patient alert and oriented times three. No acute distress. Significant cough. HEENT: Normocephalic, atraumatic. PULMONARY: Bilateral crackles. Moderate expiratory wheeze. CARDIAC: Mild tachycardia, regular rate and rhythm. ABDOMEN: Soft, nontender, nondistended. Positive bowel sounds. EXTREMITIES: No edema bilateral lower extremities. ASSESSMENT AND PLAN: This is a 80-year-old female patient with underlying medical history of hypothyroidism, osteoarthritis, non-insulin dependent type 2 diabetes, gastroesophageal reflux disease (GERD), gout, dyslipidemia, hypertension, skin cancer, carotid artery stenosis recently left eye amaurosis fugax and recently diagnosed with adenocarcinoma of the lung, stage IV diagnosed in July 2016 presented with hypoxic respiratory failure, dyspnea and cough. PROBLEM LIST: 1. Dyspnea and hypoxic respiratory failure likely secondary to adenocarcinoma of the lung. The patient stage IV versus postobstructive pneumonia, reactive protein elevated, leukocytosis and tachycardia, sepsis secondary to postobstructive pneumonia. Followup cultures. Sputum culture positive for Klebsiella. Blood cultures, influenza negative. Antibiotics, the patient on cefepime and azithromycin. IV hydration mixture provided. CT scan of the lung appreciated. 2. Adenocarcinoma of the lung. The patient sees Dr. Emma Lira. Recent test revealed stage IV disease. Dr. Snell consulted. The patient currently waiting for tumor markers. EGFR, which if it is possible, patient might be a candidate for oral chemotherapy, otherwise the patient will need IV chemotherapy. Continue antibiotics as mentioned above. Oxygen, supportive care and cough suppressant. Continue inhalers and steroids. 3. Carotid artery stenosis. Unfortunately, patient's further procedure for carotid endarterectomy has to be postponed secondary to active cancer. Aspirin, Plavix has been on hold for possibility of chemotherapy port in the event that only IV chemo is available. The patient does not tolerate statin due to complication of jaundice. 4. Hypertension. Monitor blood pressure. Continue blood pressure medication as ordered. Holding diuretics for now. Will consider resuming. 5. Diabetic neuropathy. Continue Neurontin. 6. Insulin-dependent diabetes. Insulin as per protocol. 7. Dyslipidemia. Dietary modification. 8. Gastroesophageal reflux disease (GERD). Continue proton pump inhibitor (PPI). 9. Gout. Continue home medication. 10. Hypothyroidism. Continue Synthroid. 11. Lower extremity edema, ultrasound Doppler negative for deep venous thrombosis (DVT). Will resume diuretic once patient's condition improves. 12. DVT prophylaxis, Lovenox subcutaneously. DISPOSITION PLANNING. Pending tumor markers, clinical improvement and decision regarding IV chemotherapy versus oral chemotherapy.
[2016-08-14] MEDS: MULTIVITAMINS/MINERALS THERAP 1 TAB PO SCH (21:23)
[2016-08-14] MEDS: ACETAMINOPHEN TAB 650MG DOSE (2X325MG) PO PRN (21:27)
[2016-08-14 22:00] VITALS: BP 143/69
[2016-08-15] MEDS: ACETAMINOPHEN TAB 650MG DOSE (2X325MG) PO PRN (02:19)
[2016-08-15] MEDS: guaiFENesin SYRUP 200 MG/10 ML UDC PO PRN ×2 (02:19→23:42)
[2016-08-15] MEDS: BENZONATATE 100 MG CAP PO SCH ×3 (04:28→20:43)
[2016-08-15] MEDS: CEFEPIME HCL 2 GM in D5W MINI-BAG PLUS 50 ML IV SCH ×2 (04:29→15:08)
[2016-08-15] MEDS: LEVOTHYROXINE 0.088 MG TAB (88 MCG) PO SCH (05:51)
[2016-08-15 06:00] VITALS: BP 182/81
[2016-08-15 07:02] LABS: MEAN CORPUSCULAR HEMOGLOBIN 30.3 pg (27.0-33.0); MEAN CORPUSCULAR HGB CONC 34.6 g/dl (32.0-36.5); MEAN CORPUSCULAR VOLUME 87.7 fl (80.0-96.0); RED CELL DISTRIBUTION WIDTH 13.4 % (11.5-14.5); WHITE BLOOD COUNT 12.1 K/mm3 (4.0-10.0)
[2016-08-15 07:19] LABS: ANION GAP 4 MEQ/L (8-16); BLOOD UREA NITROGEN 26 MG/DL (7-18); CALCIUM LEVEL 9.9 MG/DL (8.8-10.2); CARBON DIOXIDE LEVEL 36 MEQ/L (21-32); CHLORIDE LEVEL 91 MEQ/L (98-107); CREATININE FOR GFR 0.87 MG/DL (0.55-1.02); GLOMERULAR FILTRATION RATE > 60.0 (>39); GLUCOSE, FASTING 346 MG/DL (83-110); MAGNESIUM LEVEL 2.4 MG/DL (1.8-2.4); POTASSIUM SERUM 4.2 MEQ/L (3.5-5.1); SODIUM LEVEL 131 MEQ/L (136-145)
[2016-08-15] MEDS: GABAPENTIN 300 MG CAP PO SCH ×2 (08:30→20:43)
[2016-08-15] MEDS: SENOKOT S TAB PO SCH ×2 (08:31→20:43)
[2016-08-15] MEDS: CYANOCOBALAMIN 500 MCG TAB PO SCH (08:31)
[2016-08-15] MEDS: VITAMIN D 1,000 INTERNATIONAL UNITS TABLET PO SCH (08:31)
[2016-08-15] MEDS: ALLOPURINOL 300 MG TAB PO SCH (08:31)
[2016-08-15] MEDS: OMEPRAZOLE 20 MG CAP PO SCH (08:31)
[2016-08-15] MEDS: TORSEMIDE 10 MG TABLET PO SCH (08:31)
[2016-08-15] MEDS: ASPIRIN 81 MG ENTERIC TAB PO SCH (08:31)
[2016-08-15] MEDS: methylPREDNISolone INJ 40 MG/1 ML VIAL (J2920) IV SCH ×2 (08:32→20:44)
[2016-08-15] MEDS: amLODIPine 5 MG TAB PO SCH (08:32)
[2016-08-15] MEDS: ENOXAPARIN 40 MG/0.4 ML SYRINGE (J1650) SC SCH (08:33)
[2016-08-15] MEDS: HumaLOG INSULIN (NovoLOG) PER UNIT SC SCH ×4 (08:34→20:44)
[2016-08-15 14:00] VITALS: BP 133/71
[2016-08-15] MEDS: AZITHROMYCIN 250 MG TAB PO SCH (15:08)
--- NOTE | 2016-08-15 18:49 | DSES ---
DATE OF ADMISSION: 08/12/2016 DATE OF DISCHARGE: Pending transfer to [place] for inpatient chemotherapy. PRIMARY CARE PROVIDER: Dr. Ozzy Martínez. C T TECH: Dr. Murray. ONCOLOGIST: Dr. Emma Thomas, covered by Dr. Snell. FINAL DIAGNOSES: 1. Dyspnea and hypoxic respiratory failure with significant cough, likely secondary to adenocarcinoma of the lung, stage IV. 2. Questionable underlying pneumonia, postobstructive. 3. Carotid artery stenosis. 4. History of cerebrovascular accident (CVA). 5. Hypertension. 6. Diabetic neuropathy. 7. Insulin-dependent diabetes. 8. Dyslipidemia. 9. Gastroesophageal reflux disease (GERD). 10. Gout. 11. Hypothyroidism. HISTORY OF PRESENT ILLNESS: This is a 80-year-old female patient with underlying medical history of htm-sydafgr-zhhgywrwi type 2 diabetes, hypertension, dyslipidemia, gout, hypothyroidism, osteoarthritis, GERD, cataract, also with carotid artery stenosis, history in May of left eye amaurosis fugax, was found to have severe carotid artery stenosis, was in the process of getting optimized for carotid endarterectomy, with persistent cough since May and dyspnea. In July 2016, the patient was diagnosed with adenocarcinoma, subsequently was scheduled to followup with Dr. Emma Thomas. PET scan has been done showing stage IV disease. The patient presented back to the emergency room with worsening cough and dyspnea. Denies any fevers or chills, sick contact. The patient is on oxygen at home. Denies any chest pain, pressure or discomfort. Denies any nausea or vomiting. HOSPITAL COURSE: The patient was admitted to the hospital. Empiric antibiotics have been started. Culture has been sent. Blood culture has been negative, influenza negative. Sputum culture positive for Klebsiella. During previous admission, the patient had a swallow evaluation prior to the diagnosis of cancer, for aspiration, which the patient passed the speech and swallow evaluation with no risk of aspiration. During this empiric antibiotic was started along with empiric steroids, with cefepime and azithromycin. Steroids were tapered. Case was discussed with security director, Dr. Murray. The patient does not have underlying chronic obstructive pulmonary disease (COPD), but given the patient has significant symptoms, it is likely due to underlying cancer. Case was discussed with Dr. Snell and Dr. Emma Thomas, oncologist. As per oncologist, currently waiting for cancer markers and mutations. If it is positive, the patient might be a candidate for oral chemotherapy, but if negative, the patient will need intravenous (IV) chemotherapy and possible inpatient chemotherapy, given patient with significant symptoms and reported that she is not able to go home with all these symptoms. Deep venous thrombosis (DVT) prophylaxis was provided. Cough suppressant was provided. Blood pressure medication was continued. Plavix has been on hold since 08/12/2016, in anticipation for possible chemotherapy port. Ultrasound Doppler is negative for DVT. As of today, 08/15/2016, the patient's tumor marker finally returned with PDL1 was 0%, ALK was 0%, and EGFR was negative as well. After discussing with Dr. Snell, Dr. Snell recommended potential transfer. Subsequently, both [facility] and [place] were called to see if the patient would be a candidate to transfer for inpatient chemotherapy. Physical therapy performed during inpatient. Currently patient is waiting for a bed. VITAL SIGNS: Temperature 97.3, pulse 86, blood pressure 133/71, pulse oximetry 93% on five liters high-flow nasal cannula. LABORATORY DATA: WBC 12.1, hemoglobin and hematocrit 14.2 over 41.2, platelets 222. Chemistry: Sodium 131, potassium 4.1, chloride 91, bicarbonate 36, BUN 26, creatinine 0.87. IMAGING: CT scan of the chest shows persistent bilateral area of consolidation was seen right upper lobe, right lower lobe, especially medial basilar segment, and posterior segment of left upper lobe, as well as generalized consolidation of left lower lobe, unchanged from previous. INPATIENT MEDICATIONS: - cefepime 2 grams IV twice a day - acetaminophen 650 mg by mouth every four hours as needed - Proventil inhaler every four hours as needed - allopurinol 150 mg by mouth daily - Norvasc 5 mg by mouth daily - aspirin 81 mg by mouth daily - azithromycin 500 mg by mouth daily - Tessalon Perles 200 mg by mouth three times a day - Plavix has been on hold since August 12, 2016 - vitamin B12 500 mcg by mouth daily - Senokot-S one tablet by mouth twice a day - Lovenox 40 mg subcutaneous daily - Neurontin 300 mg by mouth twice a day - Robitussin 10 mL by mouth every four hours as needed - insulin via scale premeal - Synthroid 0.088 mg by mouth daily - Solu-Medrol taper to 10 mg IV twice a day - multivitamin - omeprazole 20 mg by mouth daily - Zofran 4 mg IV every six hours as needed - Restoril 15 mg by mouth at bedtime as needed - torsemide 10 mg by mouth daily - vitamin D 1000 units by mouth daily DISCHARGE INSTRUCTIONS: [facility]. After discharge , followup with primary care provider and oncology as outpatient. MTDD
[2016-08-15] MEDS: MULTIVITAMINS/MINERALS THERAP 1 TAB PO SCH (20:43)
[2016-08-15 22:00] VITALS: BP 139/80
[2016-08-16] MEDS: guaiFENesin SYRUP 200 MG/10 ML UDC PO PRN ×3 (04:21→23:16)
[2016-08-16] MEDS: CEFEPIME HCL 2 GM in D5W MINI-BAG PLUS 50 ML IV SCH ×2 (04:22→15:59)
[2016-08-16] MEDS: LEVOTHYROXINE 0.088 MG TAB (88 MCG) PO SCH (05:24)
[2016-08-16 06:00] VITALS: BP 176/80
[2016-08-16 06:50] LABS: MEAN CORPUSCULAR HEMOGLOBIN 29.9 pg (27.0-33.0); MEAN CORPUSCULAR HGB CONC 34.4 g/dl (32.0-36.5); MEAN CORPUSCULAR VOLUME 86.9 fl (80.0-96.0); RED CELL DISTRIBUTION WIDTH 13.5 % (11.5-14.5); WHITE BLOOD COUNT 12.9 K/mm3 (4.0-10.0)
[2016-08-16 07:02] LABS: ANION GAP 8 MEQ/L (8-16); BLOOD UREA NITROGEN 28 MG/DL (7-18); CALCIUM LEVEL 10.2 MG/DL (8.8-10.2); CARBON DIOXIDE LEVEL 35 MEQ/L (21-32); CHLORIDE LEVEL 93 MEQ/L (98-107); CREATININE FOR GFR 0.74 MG/DL (0.55-1.02); GLOMERULAR FILTRATION RATE > 60.0 (>39); GLUCOSE, FASTING 296 MG/DL (83-110); MAGNESIUM LEVEL 2.4 MG/DL (1.8-2.4); POTASSIUM SERUM 4.4 MEQ/L (3.5-5.1); SODIUM LEVEL 136 MEQ/L (136-145)
[2016-08-16] MEDS: TORSEMIDE 10 MG TABLET PO SCH (09:04)
[2016-08-16] MEDS: ALLOPURINOL 300 MG TAB PO SCH (09:05)
[2016-08-16] MEDS: BENZONATATE 100 MG CAP PO SCH ×3 (09:05→19:42)
[2016-08-16] MEDS: ENOXAPARIN 40 MG/0.4 ML SYRINGE (J1650) SC SCH (09:06)
[2016-08-16] MEDS: methylPREDNISolone INJ 40 MG/1 ML VIAL (J2920) IV SCH (09:06)
[2016-08-16] MEDS: SENOKOT S TAB PO SCH ×2 (09:07→19:42)
[2016-08-16] MEDS: HumaLOG INSULIN (NovoLOG) PER UNIT SC SCH ×3 (09:07→19:47)
[2016-08-16 09:08] VITALS: BP 176/80
[2016-08-16] MEDS: CYANOCOBALAMIN 500 MCG TAB PO SCH (09:08)
[2016-08-16] MEDS: OMEPRAZOLE 20 MG CAP PO SCH (09:08)
[2016-08-16] MEDS: GABAPENTIN 300 MG CAP PO SCH ×2 (09:08→19:42)
[2016-08-16] MEDS: amLODIPine 5 MG TAB PO SCH (09:08)
[2016-08-16] MEDS: ASPIRIN 81 MG ENTERIC TAB PO SCH (09:08)
[2016-08-16] MEDS: VITAMIN D 1,000 INTERNATIONAL UNITS TABLET PO SCH (09:08)
[2016-08-16] MEDS: ALBUTEROL SULFATE 2.5 MG/0.5 ML INH NEB SOLN INH PRN ×3 (09:20→19:53)
[2016-08-16 14:00] VITALS: BP 136/74
[2016-08-16] MEDS: AZITHROMYCIN 250 MG TAB PO SCH (15:59)
[2016-08-16] MEDS ORDERED: HumaLOG INSULIN (NovoLOG) PER UNIT SC SCH (17:30)
--- NOTE | 2016-08-16 18:56 | IPN ---
DATE: 08/16/2016 SUBJECTIVE: Patient is seen and examined. No acute events overnight. Continues to have significant cough and dyspnea keeping her up all night. Denies any chest pain, pressure, discomfort. VITAL SIGNS: Temperature 97,pulse 93, respirations 21, blood pressure 136/74, pulse oximetry 93% on five liters high-flow nasal cannula. LABORATORY DATA: WBC 12.9, hemoglobin and hematocrit 14.7 over 42.8, platelets 224. Chemistry: Sodium 136, potassium 4.4, chloride 93, bicarbonate 35, BUN 28, creatinine 0.74. PHYSICAL EXAMINATION: GENERAL: The patient alert and oriented times three in no acute distress. Significant cough. HEENT: Normocephalic, atraumatic. PULMONARY: Bilateral rhonchi, moderate expiratory wheeze. CARDIAC: No tachycardia. Regular rate and rhythm. Normal S1, S2. ABDOMEN: Soft, nontender, nondistended. Positive bowel sounds. EXTREMITIES: No edema bilateral lower extremities. ASSESSMENT AND PLAN: This is a 80-year-old female patient with underlying medical history of hypothyroidism, osteoarthritis, zhc-ygsmwzh-kgpabuopt diabetes type 2, gastroesophageal reflux disease (GERD), gout, dyslipidemia, hypertension, skin cancer, carotid artery stenosis with left eye amaurosis fugax and recently diagnosed adenocarcinoma of the lung, stage IV, July 2016, who presented with hypoxia, hypoxic respiratory failure and dyspnea and cough. 1. Dyspnea and hypoxic respiratory failure with significant cough, likely secondary to adenocarcinoma of the lung, patient is stage IV, versus postobstructive pneumonia. C-reactive protein elevated. Leukocytosis, tachycardia, sepsis possibly secondary to postobstructive pneumonia. Cultures appreciated with Klebsiella. Sputum positive for Klebsiella. Blood culture negative. Influenza negative. Patient afebrile. Antibiotics: Currently patient off cefepime and azithromycin. Oxygen supplementation. Cough suppressants. CT scan appreciated. Intravenous (IV) hydration initially provided. 2. Adenocarcinoma of the lung. The patient sees Dr. Emma Thomas, currently covered by Dr. Snell. Tests of tumor marker appreciated. As per oncologist, the patient will require IV chemotherapy, given that patient is with significant symptoms. The patient does not feel that she can be discharged. Dr. Snell recommended inpatient chemotherapy; subsequently, [facility], as well as [place], have been contacted for possible potential transfer. Patient accepted at [facility] by Dr. Mccain. Awaiting for a bed, and Dr. Snell also will be calling Dr. Elizalde at [phone] at [facility] for potential transfer. Charts are copied, imaging copied, burned on to CDs. Continue oxygen, supportive care, cough suppressant in the meantime, inhalers. Patient's steroid tapered off. 3. Carotid artery stenosis. Unfortunately, the patient's further procedure of carotid endarterectomy had to be postponed secondary to active cancer. Continue aspirin. Plavix has been on hold for possible chemotherapy port placement. The patient does not tolerate statins due to jaundice. 4. Hypertension. Continue blood pressure medications. Adjust as needed. 5. Diabetic neuropathy. Continue Neurontin. 6. Yth-rsixedx-cfzoxbiyk diabetes. Hyperglycemia secondary to steroids. Steroids discontinued. Insulin dosage has been adjusted. 7. Dyslipidemia. Dietary modification. 8. Gastroesophageal reflux disease (GERD). Continue proton pump inhibitor (PPI). 9. Gout. Continue home medications. 10. Hypothyroidism. Continue Synthroid. 11. Lower extremity edema. Ultrasound Doppler negative for deep venous thrombosis (DVT). Diuretic was ordered. Leg elevation. 12. Deep venous thrombosis (DVT) prophylaxis. Lovenox subcutaneously. DISPOSITION PLANNING: Pending transfer to center capable of administering chemotherapy as inpatient.
[2016-08-16] MEDS: MULTIVITAMINS/MINERALS THERAP 1 TAB PO SCH (19:42)
[2016-08-16 19:53] VITALS: O2SAT 93
[2016-08-16] MEDS ORDERED: guaiFENesin ER 600 MG TAB PO SCH (21:00)
[2016-08-16 22:00] VITALS: BP 141/65
[2016-08-16] MEDS: TEMAZEPAM 15 MG CAP PO PRN (23:37)
[2016-08-17 02:43] VITALS: O2SAT 93
[2016-08-17] MEDS: ALBUTEROL SULFATE 2.5 MG/0.5 ML INH NEB SOLN INH PRN ×2 (02:43→03:23)
[2016-08-17] MEDS: CEFEPIME HCL 2 GM in D5W MINI-BAG PLUS 50 ML IV SCH (03:48)
[2016-08-17] MEDS: LEVOTHYROXINE 0.088 MG TAB (88 MCG) PO SCH (05:38)
[2016-08-17 06:00] VITALS: BP 132/72
[2016-08-17 06:52] LABS: MEAN CORPUSCULAR HGB CONC 34.2 g/dl (32.0-36.5); MEAN CORPUSCULAR VOLUME 87.6 fl (80.0-96.0); RED CELL DISTRIBUTION WIDTH 12.7 % (11.5-14.5); WHITE BLOOD COUNT 14.9 K/mm3 (4.0-10.0)
[2016-08-17 07:11] LABS: ANION GAP 6 MEQ/L (8-16); BLOOD UREA NITROGEN 27 MG/DL (7-18); CALCIUM LEVEL 10.1 MG/DL (8.8-10.2); CARBON DIOXIDE LEVEL 36 MEQ/L (21-32); CHLORIDE LEVEL 92 MEQ/L (98-107); CREATININE FOR GFR 0.76 MG/DL (0.55-1.02); GLOMERULAR FILTRATION RATE > 60.0 (>39); GLUCOSE, FASTING 249 MG/DL (83-110); MAGNESIUM LEVEL 2.1 MG/DL (1.8-2.4); SODIUM LEVEL 134 MEQ/L (136-145)
[2016-08-17 07:30] VITALS: BP 184/84
--- NOTE | 2016-08-17 20:31 | DSES ---
DATE OF ADMISSION: 08/12/2016 DATE OF DISCHARGE: 08/16/2016 DISCHARGE DIAGNOSES: 1. Dyspnea and hypoxic respiratory failure with significant cough likely secondary to adenocarcinoma of the lung stage 4. 2. Question of underlying pneumonia, post obstructive. 3. Carotid artery stenosis. 4. Cerebrovascular accident (CVA). 5. Hypertension. 6. Diabetic neuropathy. 7. Insulin-dependent diabetes. 8. Dyslipidemia. 9. Gastroesophageal reflux disease (GERD). 10. Gout. 11. Hypothyroidism. Please refer to the previous discharge summary for details. Patient was discharged today due to bed was not available yesterday and the day prior. DISCHARGE MEDICATIONS: Discharge medication change including Plavix has been stopped; otherwise, all other medications were kept the same. DISCHARGE INSTRUCTIONS: Patient should followup with oncology at [facility] for further care, and currently patient will be transferred to [facility] to receive further care including inpatient chemotherapy. Patient has been discussed with attending doctor, Dr. Elena. My preceptor for this patient encounter was Dr. Zuleyka Elena. The preceptor was physically present in the building during the encounter and was fully available as needed. All aspects of the patient interview, examination, medical decision making process, and medical care plan development were reviewed and approved by the preceptor. The preceptor is aware and concurs with the plan as stated in the body of this note and will attest to such by his co-signature. I have both independently examined this patient as well as reviewed the note. I have discussed in detail with the resident the findings and plan of treatment as documented in the residents note. I will continue to follow the patient and offer further guidance to the patients care as necessary during this hospital stay. Zuleyka GUERRERO
--- NOTE | 2016-08-20 08:00 | DSES ---
DATE OF ADMISSION: 08/12/2016 DATE OF DISCHARGE: 08/17/2016 ADDENDUM: This is an addendum to the discharge summary done on 08/16/2016. The patient had an uneventful night. She did not have any new complaints this morning. The patient's vitals this morning were temperature 98.7, pulse 114, respiratory rate 20, blood pressure 132/72, pulse oximetry 89% with 5 liters high flow oxygen. General: Patient was awake, alert, oriented times three, in no acute distress. There was significant cough present. Normocephalic, atraumatic. Moist mucous membranes. Anicteric eyes. Chest: Bilateral rhonchi and wheezing. Cardiovascular: Tachycardia. S1, S2, regular. Abdomen: Soft. Nontender. Bowel sounds present. Extremities: Has bilateral edema. LABORATORY DATA: WBC 14.9, hemoglobin 15.3, platelets 236. Sodium 134, potassium 4, chloride 92, bicarbonate 36, BUN 27, creatinine 0.7, glucose 249. DISPOSITION: Patient was transferred to [facility] for inpatient chemotherapy. DISCHARGE DIAGNOSES: 1. Stage IV adenocarcinoma of the lung. 2. Acute hypoxic respiratory failure. 3. Possibly postobstructive pneumonia. 4. History of cerebrovascular accident. 5. History of carotid artery stenosis. 6. Diabetes. 7. Hypertension. 8. Diabetic neuropathy. 9. Gastroesophageal reflux disease. 10. Dyslipidemia. 11. Gout. 12. Hypothyroidism. For the rest of the details about the discharge summary, please refer to the dictation from 08/15/2016 and 08/16/2016.
== END 2016-08-17 07:30 | disposition short-term general hospital (02) | DRG 871 ==
LOC: M ED 08:32 → M ED INP 12:48 → M ICU 14:39 → M MS5PR 08-13 14:02
PROVIDERS: ADMIT Hospitalist; ATTEND Hospitalist
DX: A41.9 Sepsis, unspecified organism (principal); J18.9 Pneumonia, unspecified organism; J96.01 Acute respiratory failure with hypoxia; C34.92 Malignant neoplasm of unspecified part of left bronchus or lung; G45.3 Amaurosis fugax; B96.1 Klebsiella pneumoniae [K. pneumoniae] as the cause of diseases classified elsewhere; I10 Essential (primary) hypertension; E03.9 Hypothyroidism, unspecified; M10.9 Gout, unspecified; K21.9 Gastro-esophageal reflux disease without esophagitis; M79.89 Other specified soft tissue disorders; E78.5 Hyperlipidemia, unspecified; E11.40 Type 2 diabetes mellitus with diabetic neuropathy, unspecified; Z86.73 Personal history of transient ischemic attack (TIA), and cerebral infarction without residual deficits; Z99.81 Dependence on supplemental oxygen; Z88.0 Allergy status to penicillin; Z88.5 Allergy status to narcotic agent; Z88.8 Allergy status to other drugs, medicaments and biological substances; Z88.1 Allergy status to other antibiotic agents; Z90.49 Acquired absence of other specified parts of digestive tract; Z96.651 Presence of right artificial knee joint; Z79.82 Long term (current) use of aspirin